=== PATIENT | female | born 1980 | race Caucasian/White ===

== ENCOUNTER 2023-02-19 09:52 | Outpatient (OUT) | payer BC, SELFPAY ==
--- NOTE | 2023-02-19 10:32 | ECG_ITS ---
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
--- NOTE | 2023-02-19 10:49 | P.GSHP_ITS ---
History of Present Illness History of Present Illness Chief complaint: REQUEST FOR STERILIZATION Narrative: Patient presents for preadmission testing. The patient states she generally has regular periods, however she has had irregular menstrual bleeding over the past few months, and has had painful heavy periods and pelvic pain. She also states she does not want to get and would like sterilization. She denies fever, nausea, vomiting, or any other complaints. Review of Systems ROS Narrative REVIEW OF SYSTEMS: Negative except as stated in HPI, ten or more systems reviewed. Constitutional: No fever , chills, weakness ENT: No sore throat or epistaxis Cardiovascular: No edema, chest pain, palpitations, or activity intolerance Respiratory: No shortness of breath, cough, or wheezing Musculoskeletal: No joint pain or swelling Gastrointestinal: No abdominal pain, constipation, diarrhea, or vomiting Genitourinary: No dysuria or hematuria Neurological: No numbness, tingling, weakness, or headache Psychiatric: No mood changes PFSH PFSH Medical History (Updated 02/19/23 @ 10:32 by Niyah Camacho NP) Surgical History (Updated 02/19/23 @ 10:32 by Niyah Camacho NP) Family History (Updated 02/19/23 @ 10:32 by Niyah Camacho NP) Other Delayed recovery from anesthesia Family history of breast cancer Family history of diabetes mellitus Family history of heart disease Family history of hypertension Social History (Updated 02/19/23 @ 10:22 by Niyah Camacho NP) Within the past year, how often did you have a drink containing alcohol: 2-3 times a week Smoking status: Current every day smoker What tobacco products do you use: cigarettes Pack-years instructions: Please document either packs per day or cigarettes per day in order for pack years to calculate correctly. If using both packs per day and cigarettes per day, please make sure that they denote the same thing. If they differ, pack- years will calculate based on packs per day. 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 Highest level of school completed/degree received: some college, no degree Meds Home Medications and Allergies Home Medications Medication Instructions Recorded Confirmed Type escitalopram oxalate 5 mg tablet 5 mg PO QDAY 02/19/23 02/19/23 History lamotrigine 150 mg tablet 150 mg PO QDAY 02/19/23 02/19/23 History metoprolol tartrate 25 mg tablet 12.5 mg PO QDAY 02/19/23 02/19/23 History multivitamin (Multiple Vitamins 1 tab PO DAILY 02/19/23 02/19/23 History tablet) omeprazole 20 mg capsule,delayed 20 mg PO DAILY 02/19/23 02/19/23 History release quetiapine 25 mg tablet 6.25 mg PO QDAY 02/19/23 02/19/23 History Allergies Allergy/AdvReac Type Severity Reaction Status Date / Time Penicillins Allergy Unknown Verified 02/19/23 10:16 Exam Narrative Exam Narrative: Constitutional: Awake, alert, comfortable, well-appearing, nontoxic, interactive, vital signs as charted Head: Normocephalic, atraumatic Neck: Supple, normal appearance, normal range of motion, no meningeal signs, no lymphadenopathy Respiratory: No respiratory distress, breath sounds clear Cardiovascular: Regular rate and rhythm, strong and regular heart tones Abdomen: Nontender, normal bowel sounds, soft, no CVA tenderness Musculoskeletal: Normal gait, no swelling or edema Skin: No rashes or induration, no lesions, only visible skin inspected Neuro: No neurological deficits, normal sensation Psychiatric: Oriented ?3, normal affect Assessment and Plan Assessment and Plan (1) Abnormal uterine bleeding: (2) Menorrhagia: (3) Pelvic pain: (4) Request for sterilization: Plan Bilateral laparoscopic salpingectomy, endometrial ablation/Jonelle assisted by da Arielle robot scheduled with Dr. Pollard 03/01/2023.
== END 2023-02-19 09:53 ==
PROVIDERS: PCP Family Medicine
DX: Z01.810 Encounter for preprocedural cardiovascular examination (principal); Z30.2 Encounter for sterilization; N92.0 Excessive and frequent menstruation with regular cycle; N93.9 Abnormal uterine and vaginal bleeding, unspecified; R10.2 Pelvic and perineal pain
CPT/HCPCS: 93005; G0463

== ENCOUNTER 2023-03-01 07:34 | Day surgery (SDC) | payer BC, SELFPAY ==
[2023-02-19 10:23] VITALS: BP 125/71; PULSE 69; RESP 18; TEMP 36.5; O2SAT 99; BMI 22.0
[2023-03-01] VITALS (9 sets, daily range): BP systolic 120–144; BP diastolic 67–81; PULSE 61–94; RESP 12–20; TEMP 36.1–36.3; O2SAT 93–98; BMI 21.7
[2023-03-01 07:55] LABS: Hematocrit 41.7 % (36.0-48.0); Hemoglobin 14.1 g/dL (12.0-16.0); Mean Corpuscular HGB Conc 33.8 g/dL (29.9-35.2); Mean Corpuscular Hemoglobin 32.4 pg (26.7-34.0); Mean Corpuscular Volume 95.9 fL (81.0-99.0); Mean Platelet Volume 9.1 fL (9.5-13.5); Platelet Count 218 10^3/uL (150-450); Red Blood Count 4.35 10^6/uL (4.20-5.40); White Blood Count 5.5 10^3/uL (4.0-11.0)
[2023-03-01] MEDS: LACTATED RINGER'S SOLUTION 1,000 ML 50 ML IV (08:20)
[2023-03-01 08:57] LABS: HCG Quantitative <1 mIU/mL
--- NOTE | 2023-03-01 10:01 | OP_ITS ---
OPERATION DATE: ??03/01/2023 PROCEDURE:? Jonelle endometrial ablation with robotic assisted bilateral laparoscopic salpingectomy. PREOPERATIVE DIAGNOSIS:? Menorrhagia, desires permanent sterilization. POSTOPERATIVE DIAGNOSIS:? Menorrhagia, desires permanent sterilization. ANESTHESIA:? General. SURGEON:? Osiel Pollard D.O. MARKETING AND DEVELOPMENT COORDINATOR:? ETHEL Pereyra URINE OUTPUT:? Yellow and clear. BLOOD LOSS:? 5 mL. SPECIMEN:? Bilateral tubes. FINDINGS:? Normal appearing ovaries, uterus and tubes.? Both ostia seen.? No gross evidence of polyps, fibroids or malignancy. PROCEDURE:? The patient was taken back to the OR where she was prepped and draped in the normal sterile fashion after being placed in the dorsal lithotomy position, after being placed under general anesthesia without difficulty. a weighted speculum was then placed into the vagina. The anterior lip was grasped with a single tooth tenaculum. The patient was then sounded to approximately 9 cm. The patient was gently sounded using Hegar dilators and the hysteroscope was passed through the cervix into the uterus where both ostia were seen. No gross evidence of polyps, fibroids or malignancy. The cervical length was noted to be 5 cm. The Jonelle ablation apparatus was set to approximately 4 cm in length. This was placed in through the cervix and into the uterus. After the seal was tested, at that time the total ablation of 120 seconds was performed with the Jonelle without difficulty. All instruments were removed from the vagina. A wet sponge stick was placed into the patient's vagina. Attention was then turned tothe patient's abdomen, where a scalpel was used to make a small infraumbilical incision. The S retractors were then used to dissect the underlying layersuntil the fascia could be seen. The fascia was then grasped with Kassidy clamps and tented up. A knife was then used to make a small incision to the fascia. The muscle was identified, at that time two sutures of #0 Vicryl on a GI needle was then used and placed through the fascia. The peritoneum was then identified and entered bluntly. The 10-4 Kayla was then placed into the patient's abdomen. This was confirmed with direct visualization of the bowel, using the laparoscope. The patient's abdomen was then insufflated using approximately 4 liters of CO2 gas. Survey of the patient's abdomen demonstrated normal appearing ovaries, uterus and tubes. A second and third lateral robotic ports, which was 5 mm in size, was then placed laterally after incision was made in the skin under direct visualization. The robotic arms were engaged. The patient's tube on the patient's right side was identified. The tube was then tented up using a grasper. The LigaSure wasused to transect and coagulate the mesosalpinx from the fimbriated end to the insertion at the uterus.? The tube was amputated and removed in its entirety.? Excellent hemostasis was noted.? This was performed on the contralateral side as well. The lateral ports were then moved under direct visualization with excellent hemostasis. The abdomen was desufflated. All instruments were removed from the patient's abdomen. The fascia was closed using the #0 Vicryl on GI needle. The skin was closed using 4-0 Vicryl subcuticularly. All instruments were removed from the patient's vagina as well. The patient was taken out of the dorsal lithotomy position and placed in the supine position and taken to recovery in stable condition. Sponge, lap and needle counts were correct x2. Omental adhesions were removed from the anterior abdominal wall using theLigaSure. ??? ABDID
--- NOTE | 2023-03-01 10:43 | PC.NURSE ---
x3 dressings; dry x3
--- NOTE | 2023-03-01 10:45 | PC.NURSE ---
16 estonian patel inserted by Rachel Hernandez at beginning of case. Removed at end with 700ml of clear yellow urine
--- NOTE | 2023-03-01 10:48 | PC.NURSE ---
peripad dry and abdominal dressings x3 dry
--- NOTE | 2023-03-01 10:52 | PC.NURSE ---
peripad dry and abdominal dressings x3 dry and intact
--- NOTE | 2023-03-01 10:57 | PC.NURSE ---
peripad dry and dressings x3 to abdomen dry
--- NOTE | 2023-03-01 11:38 | PC.NURSE ---
peripad dry; abdominal dressings dry and intact x3 denies urge to void
--- NOTE | 2023-03-01 11:58 | PC.NURSE ---
PERIPAD DRY; ABDOMINAL DRESSINGS X3 DRY AND INTACT
--- NOTE | 2023-03-01 12:02 | PC.NURSE ---
VOIDED CLEAR YELLOW WITHOUT DIFFICULTY; SCANT AMOUNT OF BLOOD NOTED IN TOLIET
--- NOTE | 2023-03-01 13:52 | PC.NURSE ---
48 Jonelle done. 950 Tubal began.
[2023-08-09 14:16] LABS: General Pathology SENT
== END 2023-03-01 12:10 | disposition home or self-care (01) ==
PROVIDERS: PCP Family Medicine; Visit Provider Obstetrics & Gynecology
PROC: (CPT 58563; principal; 2023-03-01 08:50)
DX: Z30.2 Encounter for sterilization (principal); N92.0 Excessive and frequent menstruation with regular cycle; N93.9 Abnormal uterine and vaginal bleeding, unspecified; N80.203 Endometriosis of bilateral fallopian tubes, unspecified depth; R10.2 Pelvic and perineal pain; F17.210 Nicotine dependence, cigarettes, uncomplicated; Z79.899 Other long term (current) drug therapy
CPT/HCPCS: 58563; 58661; 36415; 84702; 85027; 88302; 88342; J2704

== ENCOUNTER 2024-07-22 16:55 | Emergency (ER) | payer BC, SELFPAY ==
[2024-07-22 16:57] VITALS: BP 165/84; PULSE 88; TEMP 36.8; O2SAT 99
--- NOTE | 2024-07-22 17:29 | US_ITS ---
[address] [address] Patient Name: DENISE WITT MRN: [id number] date: 1980 Sex: F Assigned Patient Location: ER Current Patient Location: .MAIN Accession/Order Number: [id number] Exam Date: 07/22/2024 17:50 Report Date: 07/22/2024 19:49 At the request of: JENNIFER PARSON Procedure: US pelvis transvaginal EXAM: Pelvic ultrasound ultrasound CLINICAL INDICATION: pelvic pain, vaginal bleeding. COMPARISON: Ultrasound dated 01/29/2023 TECHNIQUE: Transvaginal pelvic ultrasound was performed with grayscale and color Doppler images were obtained. FINDINGS: Uterus: Uterus measures 8.5 x 4.0 x 4.8 cm. No abnormal uterine masses. Endometrium measures 3 mm thickness. Hypoechoic lesion with low level internal echoes in the cervix measuring 2.0 x 1.3 x 2.1 cm, this was not present on 01/29/2023. Nabothian cysts. Right ovary: Measures 1.8 x 1.5 x 1.6 cm. Normal color flow and Doppler arterial and venous waveforms. No ovarian masses. Left ovary: Measures 2.7 x 2.5 x 2.9 cm. Normal color flow and Doppler arterial and venous waveforms. No ovarian masses. No free fluid in the pelvis. US/US pelvis transvaginal IMPRESSION: 1. Hypoechoic lesion the cervix is indeterminate. Large nabothian cysts or prior postoperative change are considerations. This was not present on 01/29/2023. Correlate with hCG levels to exclude ectopic . 2. Otherwise, no acute sonographic abnormalities in the pelvis. Electronically authenticated by: EDEN GUPTA Date: 07/22/2024 19:49
--- NOTE | 2024-07-22 17:31 | ED_ITS ---
HPI HPI - General Adult General Chief complaint: Abdominal Pain Stated complaint: ABDOMINAL PAIN Time Seen by Provider: 07/22/24 16:58 Source: patient Mode of arrival: walk-in Limitations: no limitations History of Present Illness HPI narrative: Patient presented to the emergency department for evaluation of 3 weeks of pelvic pain. Patient states that for the last 3 weeks she has been having pain. Suprapubic, right over the uterus. Patient states that it the last 3 weeks, nothing brings it on, not makes it go away. Patient states that since Saturday it has been consistent as well at work today. She was not sure what it was so she came in here. Patient states that while department she felt a gush, noted she was starting her period. States that she has been bleeding for 3 she had an ablation of her tubes, Has not had a period since that time. Is not sexually active. No complaints at this time Related Data Home Medications ?Medication ?Instructions ?Recorded ?Confirmed lamotrigine 150 mg tablet 150 mg PO QDAY 02/19/23 07/22/24 metoprolol tartrate 25 mg tablet 12.5 mg PO QDAY 02/19/23 07/22/24 multivitamin (Multiple Vitamins 1 tab PO DAILY 02/19/23 07/22/24 tablet) omeprazole 20 mg capsule,delayed 20 mg PO DAILY 02/19/23 07/22/24 release duloxetine 60 mg capsule,delayed mg PO 07/22/24 release Previous Rx's ?Medication ?Instructions ?Recorded ibuprofen 800 mg tablet 800 mg PO Q8H PRN pain #40 tabs 03/01/23 Allergies Allergy/AdvReac Type Severity Reaction Status Date / Time Penicillins Allergy Unknown Verified 02/19/23 10:16 Opioid HPI Opioid Management Most Recent Opioid Data: Last Pain Scale 3 03/01/23 11:24 03/01/23 Review of Systems ROS Narrative Negative unless otherwise stated in the HPI [facility] Medical History (Updated 07/22/24 @ 18:51 by Temo Almonte MD) Thrombocytopenia ?D69.6 - Thrombocytopenia, unspecified (ICD-10) Anemia ?D64.9 - Anemia, unspecified (ICD-10) Anxiety ?F41.9 - Anxiety disorder, unspecified (ICD-10) COVID-19 ?U07.1 - COVID-19 (ICD-10) Vertigo ?R42 - Dizziness and giddiness (ICD-10) Chiari malformation Migraine ?G43.909 - Migraine, unspecified, not intractable, without status migrainosus (ICD-10) Abnormal uterine bleeding ?N93.9 - Abnormal uterine and vaginal bleeding, unspecified (ICD-10) Menorrhagia ?N92.0 - Excessive and frequent menstruation with regular cycle (ICD-10) Pelvic pain ?R10.2 - Pelvic and perineal pain (ICD-10) Tachycardia ?R00.0 - Tachycardia, unspecified (ICD-10) Palpitations ?R00.2 - Palpitations (ICD-10) Request for sterilization ?Z30.2 - Encounter for sterilization (ICD-10) Surgical History (Updated 02/19/23 @ 10:32 by Niyah Camacho NP) History of bone marrow biopsy ?Z98.890 - Other specified postprocedural states (ICD-10) History of colonoscopy ?Z98.890 - Other specified postprocedural states (ICD-10) History of wisdom tooth extraction ?K08.409 - Partial loss of teeth, unspecified cause, unspecified class (ICD- 10) History of tonsillectomy ?Z90.89 - Acquired absence of other organs (ICD-10) Family History (Updated 02/19/23 @ 10:55 by Niyah Camacho NP) Other Angina pectoris Delayed recovery from anesthesia Family history of breast cancer Family history of diabetes mellitus Family history of heart disease Family history of hypertension Social History (Updated 02/19/23 @ 10:22 by Niyah Camacho NP) Within the past year, how often did you have a drink containing alcohol: 2-3 times a week Smoking status: Current every day smoker What tobacco products do you use: cigarettes Cigarettes per day: 15 Years smoked: 25 Smoking pack-years: 18.75 Non-prescribed substance use: denies use Previous occupational history: [employer] Services Highest level of school completed/degree received: some college, no degree Little interest or pleasure in doing things: not at all Feeling down, depressed, or hopeless: not at all Exam Narrative Exam Narrative: General: NAD, AAOx3, no distress Eyes: No pallor Abdomen: Soft, ND/tenderness to the uterus, suprapubic low pelvis. No evidence of fluid wave. No pulsatile masses on exam, rebound tenderness, Wolf sign or pain over Mcburney's point. Constitutional Vital Signs, click to edit/add: Last Vital Signs Temp 98.3 F 07/22/24 16:57 Pulse 88 07/22/24 16:57 Resp 16 07/22/24 16:57 BP 165/84 H 07/22/24 16:57 Pulse Ox 99 07/22/24 16:57 O2 Del Method Room Air 07/22/24 16:57 Course Vital Signs Vital signs: Vital Signs Temperature 98.3 F 07/22/24 16:57 Pulse Rate 88 07/22/24 16:57 Respiratory Rate 16 07/22/24 16:57 Blood Pressure 165/84 H 07/22/24 16:57 Pulse Oximetry 99 07/22/24 16:57 Oxygen Delivery Method Room Air 07/22/24 16:57 Temperature 98.3 F 07/22/24 16:57 Pulse Rate 88 07/22/24 16:57 Respiratory Rate 16 07/22/24 16:57 Blood Pressure 165/84 H 07/22/24 16:57 Pulse Oximetry 99 07/22/24 16:57 Oxygen Delivery Method Room Air 07/22/24 16:57 Medical Decision Making MDM Narrative Medical decision making narrative: [facility] Patient with history as above presented with pelvic pain. History obtained from patient. Patient was nontoxic, stable. Ambulatory. Exam as above. Independently reviewed imaging. Reviewed external records. Differential diagnosis considered. Overall presentation is consistent with DUB 1900 patient was signed out at normal change of shift pending ultrasound and urine Prag Discharge Plan Discharge Chief Complaint: Abdominal Pain Clinical Impression: Pelvic pain, Vaginal bleeding Patient Disposition: Still a Patient Prescriptions / Home Meds: No Action lamotrigine 150 mg tablet 150 mg PO QDAY metoprolol tartrate 25 mg tablet 12.5 mg PO QDAY multivitamin [Multiple Vitamins] Tablet 1 tab PO DAILY omeprazole 20 mg capsule,delayed release(DR/EC) 20 mg PO DAILY ibuprofen 800 mg tablet 800 mg PO Q8H PRN (Reason: pain) Qty: 40 0RF duloxetine 60 mg capsule,delayed release(DR/EC) PO Print Language: Trinidadian Referrals: SHAGGY ROLLE [Primary Care Provider] - 1 week
[2024-07-22 19:33] LABS: HCG Qualitative Urine* NEGATIVE (NEGATIVE); Internal Control Within Normal Limits
--- NOTE | 2024-07-22 19:57 | ED.ABDPAIN1 ---
HPI - Abdominal Pain General Chief Complaint: Abdominal Pain Stated Complaint: ABDOMINAL PAIN Time Seen by Provider: 07/22/24 16:58 Source: patient Mode of arrival: walk-in Limitations: no limitations History of Present Illness HPI narrative: 44-year-old female presented to the emergency department and was initially seen by Dr. Almonte and signed out to me after discussing the case with him thoroughly. Please see his full history and physical exam. Related Data Home Medications ?Medication ?Instructions ?Recorded ?Confirmed lamotrigine 150 mg tablet 150 mg PO QDAY 02/19/23 07/22/24 metoprolol tartrate 25 mg tablet 12.5 mg PO QDAY 02/19/23 07/22/24 multivitamin (Multiple Vitamins 1 tab PO DAILY 02/19/23 07/22/24 tablet) omeprazole 20 mg capsule,delayed 20 mg PO DAILY 02/19/23 07/22/24 release duloxetine 60 mg capsule,delayed mg PO 07/22/24 release Previous Rx's ?Medication ?Instructions ?Recorded ibuprofen 800 mg tablet 800 mg PO Q8H PRN pain #40 tabs 03/01/23 Allergies Allergy/AdvReac Type Severity Reaction Status Date / Time Penicillins Allergy Unknown Verified 02/19/23 10:16 [facility] Medical History (Updated 07/22/24 @ 18:51 by Temo Almonte MD) Thrombocytopenia ?D69.6 - Thrombocytopenia, unspecified (ICD-10) Anemia ?D64.9 - Anemia, unspecified (ICD-10) Anxiety ?F41.9 - Anxiety disorder, unspecified (ICD-10) COVID-19 ?U07.1 - COVID-19 (ICD-10) Vertigo ?R42 - Dizziness and giddiness (ICD-10) Chiari malformation Migraine ?G43.909 - Migraine, unspecified, not intractable, without status migrainosus (ICD-10) Abnormal uterine bleeding ?N93.9 - Abnormal uterine and vaginal bleeding, unspecified (ICD-10) Menorrhagia ?N92.0 - Excessive and frequent menstruation with regular cycle (ICD-10) Pelvic pain ?R10.2 - Pelvic and perineal pain (ICD-10) Tachycardia ?R00.0 - Tachycardia, unspecified (ICD-10) Palpitations ?R00.2 - Palpitations (ICD-10) Request for sterilization ?Z30.2 - Encounter for sterilization (ICD-10) Surgical History (Updated 02/19/23 @ 10:32 by Niyah Camacho NP) History of bone marrow biopsy ?Z98.890 - Other specified postprocedural states (ICD-10) History of colonoscopy ?Z98.890 - Other specified postprocedural states (ICD-10) History of wisdom tooth extraction ?K08.409 - Partial loss of teeth, unspecified cause, unspecified class (ICD-10) History of tonsillectomy ?Z90.89 - Acquired absence of other organs (ICD-10) Family History (Updated 02/19/23 @ 10:55 by Niyah Camacho NP) Other Angina pectoris Delayed recovery from anesthesia Family history of breast cancer Family history of diabetes mellitus Family history of heart disease Family history of hypertension Social History (Updated 02/19/23 @ 10:22 by Niyah Camacho NP) Within the past year, how often did you have a drink containing alcohol: 2-3 times a week Smoking status: Current every day smoker What tobacco products do you use: cigarettes Cigarettes per day: 15 Years smoked: 25 Smoking pack-years: 18.75 Non-prescribed substance use: denies use Previous occupational history: [employer] Highest level of school completed/degree received: some college, no degree Little interest or pleasure in doing things: not at all Feeling down, depressed, or hopeless: not at all Exam Constitutional Vital Signs, click to edit/add: Last Vital Signs Temp 98.3 F 07/22/24 16:57 Pulse 88 07/22/24 16:57 Resp 16 07/22/24 16:57 BP 165/84 H 07/22/24 16:57 Pulse Ox 99 07/22/24 16:57 O2 Del Method Room Air 07/22/24 16:57 Course Vital Signs Vital signs: Vital Signs Temperature 98.3 F 07/22/24 16:57 Pulse Rate 88 07/22/24 16:57 Respiratory Rate 16 07/22/24 16:57 Blood Pressure 165/84 H 07/22/24 16:57 Pulse Oximetry 99 07/22/24 16:57 Oxygen Delivery Method Room Air 07/22/24 16:57 Temperature 98.3 F 07/22/24 16:57 Pulse Rate 88 07/22/24 16:57 Respiratory Rate 16 07/22/24 16:57 Blood Pressure 165/84 H 07/22/24 16:57 Pulse Oximetry 99 07/22/24 16:57 Oxygen Delivery Method Room Air 07/22/24 16:57 MDM - Abdominal Pain MDM Narrative Medical decision making narrative: test is negative and ultrasound shows possible cervical cyst. Otherwise no other abnormalities noted on the ultrasound per radiologist. The patient will follow-up with her established gynecology provider. Treatment diagnosis and follow-up were discussed thoroughly. Differential Diagnosis Differential diagnosis: Likely abdominal pain and other (Leiomyoma, ectopic , miscarriage) Lab Data Attestation: I reviewed the patient's lab results. Labs: Lab Results 07/22/24 Range/Units 19:25 Urine HCG, Qual Negative (NEGATIVE) Imaging Data Pelvic ultrasound: Radiologist's impression: ITS Impressions Transvaginal US 07/22/24 17:29 IMPRESSION: 1. Hypoechoic lesion the cervix is indeterminate. Large nabothian cysts or prior postoperative change are considerations. This was not present on 01/29/2023. Correlate with hCG levels to exclude ectopic . 2. Otherwise, no acute sonographic abnormalities in the pelvis. Electronically authenticated by: EDEN GUPTA Date: 07/22/2024 19:49 Discharge Plan Discharge Chief Complaint: Abdominal Pain Clinical Impression: Pelvic pain, Vaginal bleeding Patient Disposition: Home, Self-Care Time of Disposition Decision: 19:57 Condition: Good Mode of Transportation: Private Vehicle Prescriptions / Home Meds: No Action lamotrigine 150 mg tablet 150 mg PO QDAY metoprolol tartrate 25 mg tablet 12.5 mg PO QDAY multivitamin [Multiple Vitamins] Tablet 1 tab PO DAILY omeprazole 20 mg capsule,delayed release(DR/EC) 20 mg PO DAILY ibuprofen 800 mg tablet 800 mg PO Q8H PRN (Reason: pain) Qty: 40 0RF duloxetine 60 mg capsule,delayed release(DR/EC) PO Print Language: Citizen Of [place] Instructions: Abnormal (Dysfunctional) Uterine Bleeding (ED) Referrals: SHAGGY ROLLE [Primary Care Provider] - 1 week
== END 2024-07-22 20:07 | disposition home or self-care (01) ==
PROVIDERS: Emergency Medicine; Emergency Provider Emergency Medicine; PCP Family Medicine
DX: R10.2 Pelvic and perineal pain (principal); N93.9 Abnormal uterine and vaginal bleeding, unspecified; F17.210 Nicotine dependence, cigarettes, uncomplicated
CPT/HCPCS: 76830; 84703; 99284

== ENCOUNTER 2024-12-10 14:12 | Outpatient (OUT) | payer BC, SELFPAY ==
--- NOTE | 2024-12-10 14:34 | ECG_ITS ---
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 Measurements Intervals [place] Rate: 69 P: 57 MD: 139 QRS: 80 QRSD: 78 T: 72 QT: 385 QTc: 415 Interpretive Statements SINUS RHYTHM Otherwise normal ECG Compared to ECG 02/19/2023 10:47:26 No significant change Electronically Signed On 12-11-2024 15:12:58 EDT by STEVE COHN M.D.
[2024-12-10 15:16] LABS: Basophils Percent Auto 0.4 % (0.2-2.0); Eosinophils Absolute Auto 0.1 10^3/uL (0.0-0.7); Hematocrit 40.7 % (36.0-48.0); Hemoglobin 14.1 g/dL (12.0-16.0); Immature Granulocytes Abs Auto 0.01 10^3/uL (0.00-0.03); Immature Granulocytes Pct Auto 0.2 % (0.0-0.5); Lymphocytes Absolute Auto 1.9 10^3/uL (1.2-3.8); Lymphocytes Percent Auto 36.6 % (20.5-60.0); Mean Corpuscular HGB Conc 34.6 g/dL (29.9-35.2); Mean Corpuscular Hemoglobin 33.5 pg (26.7-34.0); Mean Corpuscular Volume 96.7 fL (81.0-99.0); Mean Platelet Volume 9.1 fL (9.5-13.5); Monocytes Absolute Auto 0.4 10^3/uL (0.3-0.8); Monocytes Percent Auto 7.1 % (1.7-12.0); Neutrophils Absolute Auto 2.7 10^3/uL (1.4-6.5); Neutrophils Percent Auto 53.7 % (43.0-75.0); Platelet Count 229 10^3/uL (150-450); Red Blood Count 4.21 10^6/uL (4.20-5.40); Red Cell Distribution Width 12.7 % (11.0-15.0); White Blood Count 5.1 10^3/uL (4.0-11.0)
[2024-12-10 15:36] LABS: Alanine Aminotransferase 34 U/L (14-59); Albumin Globulin Ratio 1.3; Albumin Level 3.8 g/dL (3.4-5.0); Alkaline Phosphatase 74 U/L (46-116); Anion Gap 12.7; Aspartate Amino Transferase 19 U/L (15-37); Bilirubin Direct 0.1 mg/dL (0.0-0.2); Bilirubin Total 0.3 mg/dL (0.2-1.0); Calcium 9.1 mg/dL (8.5-10.1); Chloride 106 mmol/L (98-107); Estimated GFR (African America >60 (>=60 mL/min/1.73m^2); Estimated GFR (Non-African Ame >60 (>=60 mL/min/1.73m^2); Globulin 2.9 g/dL; Glucose 106 mg/dL (74-106); Potassium 3.7 mmol/L (3.5-5.1); Sodium 144 mmol/L (136-145); Total Protein 6.7 g/dL (6.4-8.2)
[2024-12-10 15:40] LABS: INR 0.96; Partial Thromboplastin Time 26.1 sec (22.3-36.2); Prothrombin Time 10.2 sec (9.0-11.6)
== END 2024-12-10 14:13 | disposition home or self-care (01) ==
LOC: PST 14:12
PROVIDERS: PCP Family Medicine; Visit Provider Obstetrics & Gynecology
DX: Z01.810 Encounter for preprocedural cardiovascular examination (principal); Z01.812 Encounter for preprocedural laboratory examination; N92.0 Excessive and frequent menstruation with regular cycle; R10.2 Pelvic and perineal pain; N94.6 Dysmenorrhea, unspecified; N94.10 Unspecified dyspareunia
CPT/HCPCS: 80048; 80076; 85025; 85610; 85730; 86850; 86900; 86901; 93005

== ENCOUNTER 2024-12-18 06:50 | Outpatient (OUT) | payer BC, SELFPAY ==
--- OUTSIDE RECORDS SUMMARY | 2024-12-18 06:53 | XMS_ITS | CCD ---
Author Organization [facility] Care Team Providers Care Professor Of 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 Name Role Phone LATRICE ., DR WALKER Attending Unavailable LATRICE ., DR WALKER Admitting Unavailable LATRICE ., DR WALKER Attending Unavailable LATRICE ., DR WALKER Admitting Unavailable House , Pato Wayne Primary Care Provider HONG, TRAMAINE Redd Attending Unavailable LATRICE, AARON Attending Unavailable FLORO, TRAMAINE Redd Referring Unavailable FLORO, TRAMAINE Redd Attending Unavailable FLORO, TRAMAINE Redd Attending Unavailable FLORO, TRAMAINE Redd Attending Unavailable LATRICE, AARON Attending Unavailable Jaron Linares DO Primary Care Provider Megvalucie lable HOUSE, DO PATO Wayne Attending Unavailable HOUSE, PATO Wayne Primary Care Unavailable HOUSE, PATO Wayne Primary Care Unavailable HOUSE, DO COON P Attending Unavailable HOUSE, PATO P Primary Care Unavailable HOUSE, DO COON P Attending Unavailable HOUSE, PATO P Primary Care Unavailable HOUSE, DO PATO Wayne Admitting Unavailable HOUSE, DO PATO Wayne Attending Unavailable Allergies Allergy Classification Reported Allergen(s) Allergy Type Date of Onset Reaction(s) Facility (2 sources) Penicillins Drug allergy (disorder) 7 [facility] Repository (14 sources) Penicillins Drug Intolerance 4 Unknown [facility] Work Phone: (1 source) Penicillin; Translations: [penicillin] Drug Allergy [facility] Repository Medications Current Medications Medication Drug Class(es) Dates Sig (Normalized) Sig (Original) DULoxetine 60 mg delayed release oral capsule (4 sources) Serotonin and Norepinephrine Reuptake Inhibitor Start: 09-29-2024 take 1 capsule by mouth once daily DULoxetine (Cymbalta) [address] capsule Take 60 mg by mouth Daily 09/29/2024 Active lamoTRIgine 150 mg oral tablet (14 sources) Mood Stabilizer, Anti-epileptic Agent lamoTRIgine (LaMICtal) 150 MG tablet 1 (one) time each day at the same time. Active meclofenamate 100 mg oral capsule (2 sources) Start: 08-24-2024 End: 08-31-2024 take 1 capsule by mouth every eight hours meclofenamate (Meclomen) 100 MG capsule Indications: DUB (dysfunctional uterine bleeding) Take 1 capsule (100 mg) by mouth every 8 (eight) hours for 7 days 20 capsule 1 08/24/2024 08/31/2024 Active metoprolol tartrate 25 mg oral tablet (14 sources) beta-Adrenergic Alexander metoprolol tartrate (Lopressor) 25 MG tablet every 12 (twelve) hours. Active Multiple Vitamin (Multi Vitamin) tablet (14 sources) Multiple Vitamin (Multi Vitamin) tablet 1 (one) time each day at the same time. Active omeprazole 20 mg delayed release oral capsule (14 sources) Proton Pump Inhibitor omeprazole (PriLOSEC) [address] capsule 1 (one) time each day at the same time. Active Completed/Discontinued Medications Medication Drug Class(es) Dates Sig (Normalized) Sig (Original) escitalopram 5 mg oral tablet (4 sources) Serotonin Reuptake Inhibitor End: 08-03-2024 escitalopram (Lexapro) 5 MG tablet 1 (one) time each day at the same time. 08/03/2024 Discontinued (Therapy completed) Problems Problem Classification Problem Date Documented Date Episodic/Chronic Abdominal pain (1 source) Pain in female pelvis; Translations: [Pelvic and perineal pain] 11-25-2024 Episodic Menstrual disorders (2 sources) Menorrhagia; Translations: [Excessive and frequent menstruation with regular cycle] 11-25-2024 Chronic Other female genital disorders (5 sources) Abnormal uterine bleeding; Translations: [Other specified abnormal uterine and vaginal bleeding] 08-24-2024 Chronic Other female genital disorders (1 source) Pain in female genitalia on intercourse; Translations: [Unspecified dyspareunia] 11-25-2024 Chronic Other infections; including parasitic (2 sources) History of human papilloma virus infection; Translations: [Personal history of other infectious and parasitic diseases] 10-06-2024 Episodic Other screening for suspected conditions (not mental disorders or infectious disease) (4 sources) Cancer cervix screening status; Translations: [Encounter for screening for malignant neoplasm of cervix] 08-03-2024 Episodic Viral infection (1 source) Herpesviral gingivostomatitis and pharyngotonsillitis; Translations: [Herpesviral gingivostomatitis and pharyngotonsillitis] Onset: 11-17-2024 Episodic Results Test Name Value Interpretation Reference Range Facility ECG 12-LEADon 12-11-2024 [place] [address] Electrocardiograph Report Signed Patient: ROSALIND JACKSON MR#: [id number] : 1980 Acct:[id number] Age/Sex: 44 / F ADM Date: 12/10/24 Loc: PST Attending Dr: Aaron Pollard D.O. Ordering Physician: Aaron Pollard D.O. 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 Measurements Intervals [place] Rate: 69 P: 57 [place]: 139 QRS: 80 QRSD: 78 T: 72 QT: 385 QTc: 415 Interpretive Statements SINUS RHYTHM Otherwise normal ECG Compared to ECG 02/19/2023 10:47:26 No significant change Electronically Signed On 12-11-2024 15:12:58 EDT by STEVE COHN M.D. Dictated By: STEVE COHN Signed By: 12/11/24 1513 DD/ 1505 TD/TT: Marine Equipment Design Engineer: [facility] Radiology, Radiologist, MD - 12/11/2024 [place] [address] Electrocardiograph Report Signed Patient: ROSALIND JACKSON MR#: [id number] : 1980 Acct:[id number] Age/Sex: 44 / F ADM Date: 12/10/24 Loc: PST Attending Dr: Aaron Pollard D.O. Ordering Physician: Aaron Pollard D.O. 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 Measurements Intervals [place] Rate: 69 P: 57 [place]: 139 QRS: 80 QRSD: 78 T: 72 QT: 385 QTc: 415 Interpretive Statements SINUS RHYTHM Otherwise normal ECG Compared to ECG 02/19/2023 10:47:26 No significant change Electronically Signed On 12-11-2024 15:12:58 EDT by STEVE COHN M.D. Dictated By: STEVE COHN Signed By: 12/11/24 1513 DD/ 1505 TD/TT: Marine Equipment Design Engineer: [facility] ECG 12-LEADOrdered By: Radio logist Radiology on 12-11-2024 [facility] [employer] [employer] Work Phone: ALL CBC WITH AUTO DIFFon BASOPHILS ABSOLUTE AUTO 0 [facility] Basophils/100 WBC (Bld) 0.4 % 0.2 - 2.0 % [facility] Eosinophils/100 WBC (Bld) 2 % 0.9 - 7.0 % [facility] Erythrocyte distribution width (RBC) [Ratio] 12.7 % 11.0 - 15.0 % [facility] Hematocrit (Bld) [Volume fraction] 40.7 % 36.0 - 48.0 % [facility] Hemoglobin (Bld) [Mass/Vol] 14.1 g/dL 12.0 - 16.0 g/dL [facility] IMMATURE GRANULOCYTES ABS AUTO 0.01 [facility] Immature granulocytes/100 WBC (Bld) 0.2 % 0.0 - 0.5 % [facility] Interpretation and review of laboratory results Abnormal [facility] LYMPHOCYTES ABSOLUTE AUTO 1.9 [facility] Lymphocytes/100 WBC (Bld) 36.6 % 20.5 - 60.0 % [facility] MCH (RBC) [Entitic mass] 33.5 pg 26.7 - 34.0 pg [facility] MCHC (RBC) [Mass/Vol] 34.6 g/dL 29.9 - 35.2 g/dL [facility] MCV (RBC) [Entitic vol] 96.7 fL 81.0 - 99.0 fL [facility] MONOCYTES ABSOLUTE AUTO 0.4 [facility] Monocytes/100 WBC (Bld) 7.1 % 1.7 - 12.0 % [facility] NEUTROPHILS ABSOLUTE AUTO 2.7 [facility] Neutrophils/100 WBC (Bld) 53.7 % 43.0 - 75.0 % [facility] Platelet mean volume (Bld) [Entitic vol] 9.1 fL Low 9.5 - 13.5 [facility]L [facility] PLT 229 [facility] RBC 4.21 [facility] WBC 5.1 [facility] ECG 12-LEADon 12-10-2024 Radiology Study observation (narrative) [facility] Laboratory - Specimen inform ationon 09-21-2024 Specimen source Nom (Unsp spec) [facility] Comment on above: Endocervix, curettag e: Cervix, 3, 6, 12 o'c lock, biopsy: No Panel Informationon 09-21 Pathology report final diagnosis Narrative [facility] Comment on above: Fragments of unremar kable endocervical epithelium. Limited sample of ex tremely scant fragments of unremarkable endocervical epithelium, see comment. Pathology report gross observation Narrative [facility] Comment on above: Received in 10% neut ral buffered formalin is a specimen labeled endocervix that consists of pale lafleur mucoid material measuring in aggregate 2.0 x 1.0 x 0.1 cm. Submitted entirely in one cassette(s). Received in 10% Neut ral Buffered Formalin is a specimen labeled 3:00, 6:00, 12:00 that consists of multiple minute fragments of soft, lafleur tissue measuring 0.1 x 0.1 x 0.1 cm in aggregate. Submitted entirely in one cassette. Due to size the specimen may not survive processing. MARYLOU Tissue examon 09-21-2024 Clinical information [facility] Comment on above: [id number], [id number] Pathologist Cyto stain Nom (Cvx/Vag) [ID] [facility] Comment on above: Janette Cerrato M.D. Board certified in Anatomic Pathology and Clinical Pathology (electronic signature) [phone] Pathology report comments [Interpretation] Narrative [facility] Comment on above: Intact squamous muco sa is not present for evaluation. SMALL FORMALIN X2 CERVIX 3,6,12 O'CLOCK; ENDOCERVIX [employer] Organization Information Site ID: [id number] Name: [facility] Address: [address] [place] [address], [place] [address] Director: Janette Cerrato MD [facility] e HCG ( test) Ql (U)o n 09-18-2024 Interpretation and review of laboratory results Normal [facility] Preg Test, Ur Negative Negative [facility] Laboratory - Cytologyon Chief Accounting Officer Cyto stain Nom (Cvx/Vag) [ID] [facility] re Comment on above: PATRICIA, CT(ASCP) CT scr [place]ening location: [place] [address]. Cytology study comment Cyto stain Bennett (Cvx/Vag) [Interp] [facility] Comment on above: This Pap test has be en evaluated with computer assisted technology. General categories Cyto stain (Cvx/Vag) [Interp] Abnormal [facility] Comment on above: Cytology Results: Ep ithelial Cell Abnormality Microscopic observation Cyto stain Nom (Cvx) Abnormal [facility] Comment on above: Low Grade Squamous I ntraepithelial Lesion (LSIL) Pathologist Cyto stain Nom (Cvx/Vag) [ID] [facility] Comment on above: Vaibhav Chowdhury MD, PhD, M.B.A. Board Certified in Anatomic and Clinical Pathology Board Certified in Cytopathology (electronic signature) For questions regarding this report call Anatomic Pathology at [phone] Specimen source Cyto stain Nom (Cvx/Vag) [facility] are Comment on above: None given Statement of adequacy Cyto stain (Cvx/Vag) [Interp] [facility] Comment on above: Satisfactory for paulette luation. Endocervical/transformation zone component present. Laboratory - Microbiology an d Antimicrobial susceptibilityon 08-12-2024 HPV 16+18+31+33+35+39+45+ 51+52+56+58+59+66+68 DNA ABHIJIT+probe Ql (Cvx) Detected Abnormal NOT DETECTED [facility] Comment on above: Detected One or more High Risk HPV types (16,18,31,33, 35,39,45,51,52,56,58,59,66,68) was detected. Methodology: Real Time PCR No Panel Informationon 08-12 (ALWAYS MESSAGE) [facility] Comment on above: EXPLANATORY NOTE: The Pap is a screening test for cervical cancer. It is not a diagnostic test and is subject to false negative and false positive results. It is most reliable when a satisfactory sample, regularly obtained, is submitted with relevant clinical findings and history, and when the Pap result is evaluated along with historic and current clinical information. Clinical information [facility] Comment on above: None given Date of previous biopsy [facility] Comment on above: NONE GIVEN Date of previous PAP smear [facility] Comment on above: NONE GIVEN Interpretation and review of laboratory results Abnormal [facility] Last menstrual period start date [facility] Comment on above: NONE GIVEN Performing Organization Information Site ID: [id number] Name: its learning/[facility] Address: [address] [place] [address] Director: Michelet Heard M.D.,PhD Site ID: [id number] [facility] Address: [address] [place] [id number] Director: Vaibhav Chowdhury [facility] Outside Recordson 07-23-2024 Outside Records [id number]#1 .00[facility] Rad - Ultrasound Reporton Rad - Ultrasound Report [id number]#1 .00[facility] Patient Handouton 03-04-2024 Patient Handout [id number] #1.00[facility] Patient Provided Health Data on 02-28-2024 Patient Provided Health Data [id number]# 1.00[facility] SCREENING MAMMOGRAM W/LUIS, BILATERAL*on 02-26-2022 SCREENING MAMMOGRAM W/LUIS, BILATERAL* COMPARISON: Dating back to July 18, 2017 TECHNIQUE: 2D and 3D Tomosynthesis of the right and left breasts was performed. FINDINGS: Breast composition demonstrates heterogeneously dense parenchyma. No suspicious microcalcifications, asymmetry, architectural distortion or associated features are present. IMPRESSION: BI RADS 1 : NEGATIVE MAMMOGRAM Board Certified Radiologist. Accredited by the ACR and FDA. MAMMOGRAPHY IS VERY IMPORTANT TO YOUR HEALTH. THE CURRENT [employer] GUIDELINES RECOMMENDS ANNUAL MAMMOGRAPHY BEGINNING AT AGE 40. THIS FACILITY USES A REMINDER SYSTEM TO ENSURE ALL PATIENTS RECEIVE REMINDER NOTIFICATIONS AT THE APPROPRIATE TIME BASED ON THE RECOMMENDATIONS OF THIS EXAM. Report reported and signed by Dennis Smith on 03/05/2022 1613 Normal [facility] Automotive Quality Engineer Vital Signs Date Time Vital Sign Value Performing Clinician Faci matt 11-25-2024 16:07-0400 Body height 171.5 cm Aaron Latrice DO Work Phone: [facility] 11-25-2024 16:07-0400 Body mass index (BMI) [Ratio] 24.54 kg/m2 Aaron Latrice DO Work Phone: [facility] 11-25-2024 16:07-0400 Body weight 72.12 kg Aaron Latrice DO Work Phone: [facility] 11-25-2024 16:07-0400 Diastolic blood pressure 82 mm[Hg] Aaron Latrice DO Work Phone: [facility] 11-25-2024 16:07-0400 Systolic blood pressure 136 mm[Hg] Aaron Latrice DO Work Phone: [facility] 10-14-2024 14:52-0500 Body mass index (BMI) [Ratio] 24.35 kg/m2 Aaron Latrice DO Work Phone: [facility] 10-14-2024 14:52-0500 Body weight 72.63 kg Aaron Latrice DO Work Phone: [facility] 10-14-2024 14:52-0500 Diastolic blood pressure 72 mm[Hg] Aaron Latrice DO Work Phone: [facility] 10-14-2024 14:52-0500 Systolic blood pressure 114 mm[Hg] Aaron Latrice DO Work Phone: [facility] 08-24-2024 15:42-0500 Body mass index (BMI) [Ratio] 23.57 kg/m2 Tramaine Noreeno CNM Work Phone: [facility] 08-24-2024 15:42-0500 Body weight 70.31 kg Tramaine Floro CNM Work Phone: [facility] 08-24-2024 15:42-0500 Diastolic blood pressure 70 mm[Hg] Tramaine Noreeno CNM Work Phone: [facility] 08-24-2024 15:42-0500 Systolic blood pressure 110 mm[Hg] Tramaine Noreeno CNM Work Phone: [facility] 08-03-2024 17:48-0500 Body mass index (BMI) [Ratio] 23.57 kg/m2 Tramaine Noreeno CNM Work Phone: [facility] 08-03-2024 17:48-0500 Body weight 70.31 kg Tramaine Noreeno CNM Work Phone: [facility] Healthcare Encounters Encounter Date Encounter Type Care Provider Facility Start: 12-16-2024 ambulatory DO PATO Royal lity:[facility] Start: 12-15-2024 End: 12-15-2024 Telephone encounter Lisa Garner [facility] Comment on above: STAT referral Start: 12-10-2024 End: 12-11-2024 Clinisync Result Encounter Aaron Latrice DO Work Phone: [facility] External Department Unsolicited Start: 12-10-2024 End: 12-11-2024 Clinisync Result Encounter Aaron Latrice DO Work Phone: [facility] External Department Unsolicited Start: 11-25-2024 End: 11-25-2024 Office outpatient visit 15 minutes Aaron Latrice DO Work Phone: [facility] Comment on above: Pre-op examination; Menorrhagia with regular cycle; Pelvic pain in female; Dyspareunia, female; Dysmenorrhea Start: 11-25-2024 End: 11-25-2024 Preprocedural examination done Aaron Latrice DO Work Phone: [facility] Start: 11-25-2024 End: 11-25-2024 ambulatory AARON LATRICE Not Available Start: 11-17-2024 End: 11-17-2024 ambulatory [facility] Facility:[facility] Start: 10-14-2024 End: 10-14-2024 Office outpatient visit 15 minutes Aaron Latrice DO Work Phone: [facility] Comment on above: DUB (dysfunctional u terine bleeding) Start: 10-14-2024 End: 10-14-2024 ambulatory AARON LATRICE Not Available Start: 10-14-2024 End: 10-14-2024 Bamboo flowsheet Aaron Latrice DO Work Phone: [facility] Start: 10-14-2024 End: 10-14-2024 Bamboo flowsheet Aaron Latrice DO Work Phone: [facility] Start: 10-06-2024 End: 10-06-2024 Patient encounter procedure Tramaine Tramaine Sortoo CN Work Phone: [facility] Comment on above: Abnormal cervical Pa panicolaou smear, unspecified abnormal pap finding; History of HPV infection Start: 10-06-2024 End: 10-06-2024 ambulatory TRAMAINE L FLORO Not Available Start: 09-17-2024 End: 09-17-2024 Patient encounter procedure Tramaine L Floro CN Work Phone: [facility] Comment on above: DUB (dysfunctional u terine bleeding) (Primary Dx); Abnormal cervical Papanicolaou smear, unspecified abnormal pap finding; History of HPV infection Start: 09-17-2024 End: 09-17-2024 ambulatory TRAMAINE L FLORO Not Available Start: 08-24-2024 End: 08-24-2024 Office outpatient visit 10 minutes Tramaine L Floro CNM Work Phone: [facility] Comment on above: DUB (dysfunctional u terine bleeding) (Primary Dx) Start: 08-24-2024 End: 08-24-2024 ambulatory TRAMAINE L FLORO Not Available Start: 08-24-2024 End: 08-24-2024 Bamboo flowsheet Tramaine L Floro CNM Work Phone: [facility] Start: 08-24-2024 End: 08-24-2024 Bamboo flowsheet Tramaine L Floro CNM Work Phone: [facility] Start: 08-03-2024 End: 08-03-2024 Office outpatient visit 15 minutes Tramaine L Floro CNM Work Phone: [facility] Comment on above: Screening for cervic al cancer Start: 08-03-2024 End: 08-03-2024 ambulatory TRAMAINE L FLORO Not Available Start: 08-03-2024 End: 08-03-2024 Bamboo flowsheet Tramaine L Floro CNM Work Phone: [facility] Start: 08-03-2024 End: 08-03-2024 Bamboo flowsheet Tramaine L Floro CNM Work Phone: [facility] Start: 07-17-2024 End: 07-17-2024 Telephone encounter Pato Rolle MD Work Phone: [facility] Start: 03-02-2024 End: 03-02-2024 ambulatory PATO ROLLE Facility:[facility] Start: 02-27-2024 End: 02-27-2024 ambulatory PATO ROLLE Facility:[facility] Start: 01-29-[address] AARON POLLARD . Facili ty:[facility]1 Start: 12-31-[address] AARON POLLARD . Facili ty:[facility] Procedures Date Procedure Procedure Detail Performing Clinician Start: 12-10-2024 ALL CBC WITH AUTO DIFF Aaron Latrice DO Work Phone: Start: 12-10-2024 ECG 12-LEAD Aaron Fazi o DO Work Phone: Start: 09-18-2024 Urine test visual color cmprsn meths Tramaine Laureano CNM Work Phone: Start: 09-18-2024 Level i surg patholo gy gross examination only Tramaine Sortojosé luis CNM Work Phone: Start: 08-04-2024 THINPREP IMAGING PAP AND HPV DNA REFLEX HPV 16,18 Tramaine Sortojosé luis CNM Work Phone: Start: 02-27-2022 Microscopic observat ion [Identifier] in Cervix by Cyto stain Pato Rolle MD Work Phone: Start: 02-26-2022 Mammography Pato yee MD Work Phone: Plan of Treatment Date Care Activity Detail Author Start: 02-26-2027 Screening for malign ant neoplasm of cervix [facility] Start: 05-10-2025 Influenza vaccination [facility] Start: 01-19-2025 End: 01-19-2025 Patient encounter procedure 01/19/2025 9:00 AM EDT Procedure Visit [facility] [address] [place] [address] Tramaine Laureano CN [address] [place], [place] [id number] [facility] Start: 12-22-2024 End: 12-22-2024 Patient encounter procedure 12/22/2024 11:00 AM EDT Office Visit [facility] [place] [address] Toni Muñiz MD [address] [place] [address] [address] [place] [phone] [facility] Start: 10-14-2024 End: 10-14-2024 Patient encounter procedure [facility] Comment on above: DUB (dysfunctional u terine bleeding) Start: 10-06-2024 End: 10-06-2025 Tissue exam Tissue exam Pathology and Cytology Routine Abnormal cervical Papanicolaou smear, unspecified abnormal pap finding History of HPV infection Expected: 10/06/2024 (Approximate), Expires: 10/06/2025 [facility] Healthcare Work Phone: Comment on above: Expected: 10/06/2024 (Approximate), Expires: 10/06/2025 Start: 08-24-2024 End: 08-24-2024 Patient encounter procedure 08/24/2024 3:30 PM EST Office Visit [facility] [address] [place] [phone] Tramaine Laureano, CN [address] [place] [address] Arrived [facility] Comment on above: Arrived Start: 08-03-2024 End: 08-03-2024 Patient encounter procedure 08/03/2024 5:45 PM EST Office Visit [facility] [address] [place] [phone] [facility]amaine Laureano[facility] [address] [place] [address] Arrived [facility] Comment on above: Arrived Start: 05-10-2024 Influenza vaccination Influenza Vacc ine (#1) [facility] Start: 02-26-2023 Screening for malign ant neoplasm of breast Mammogram [facility] Start: 2001 Screening for malign ant neoplasm of cervix Pap Smear [facility] Start: 1999 DTaP,Tdap and Td Vaccines (1 - Tdap) DTaP,Tdap and Td Vaccines (1 - Tdap) [facility] Start: 1998 Adult BMI Screening Adult BMI Screen ing [facility] Start: 1992 Depression Screening Depression Scre ening [facility] Start: 1992 Tobacco Screening Tobacco Screening [facility] Payers Date Payer Category Payer [facility] [id number] 2021 Unknown [id number] 1980 Unknown [id number] [id number] .593 1980 Unknown [id number] 2.16.840.1.065203.3.579.2 .593 1980 Unknown [id number] 2.16.840.1.967547.3.579.2 .1259 1980 Unknown [id number] 2.16.840.1.436404.3.579.2 .9 1980 Unknown [id number] 2.16.840.1.293309.3.579.2 .1259 1980 Unknown [id number] 2.16.840.1.559061.3.579.2 .1259 1980 Unknown [id number] 2.16.840.1.795033.3.579.2 .1259 1980 Unknown [id number] 2.16.840.1.894564.3.579.2 .9 1980 Unknown [id number] 2.16.840.1.276196.3.579.2 .718 1980 Unknown [id number] 2.16.840.1.074642.3.579.2 .718 1980 Unknown [id number] 2.16.840.1.204828.3.579.2 .718 1980 Unknown [id number] 2.16.840.1.708013.3.579.2 .718 1959 Self-pay [id number] Social History Date Type Detail Facility Start: 09-09-2004 End: 08-03-2024 Tobacco smoking status NHIS Smokes tobacco daily [facility] Start: 09-09-2004 History of tobacco use Cigarette Smo ker [facility] Start: 04-03-2023 End: 10-14-2024 Alcoholic beverage intake Current drinker of alcohol (finding) [facility] Start: 02-18-2019 End: 04-03-2023 Alcoholic beverage intake [facility] Start: 02-18-2019 End: 04-03-2023 Tobacco use panel [facility] Start: 02-04-2023 Tobacco Comment 6-10 cigs per day. [facility] Start: 02-04-2023 Alcohol Comment Caffeine intak e: 1-2 cups per day [facility] Healthcare Start: 1980 Sex assigned at Not on file N [facility] Start: 08-03-2024 Tobacco use and exposure Smokeless tobacco non-user [facility] Tobacco smoking stat [facility] Tobacco smoking consumption unknown [facility] Childcare Unknown [facility] Start: 04-14-2015 Sex Female (finding) [facility] Clinical Notes 03-23-2024 to 12-15-2024 Telephone Encounter - Lisa Derrick Pascual - 12/15/2024 11:07 AM EDTTelephone Encounter - Lisa Meza Pascual - 12/15/2024 11:07 AM EDTMkerri Jones - 11/25/2024 3:50 PM EDT Note Date & Type Note Facility 12-15-2024 Miscellaneous Notes Formattin g of this note might be different from the original. Please ask the following questions to the new patient that you are schedulin. IS THIS DUE TO AN ACCIDENT? - NO 2. IS THIS WORKER'S COMP? PLEASE VERIFY IF THIS IS WORKERS COMP AND DOCUMENT (We do not accept any new workers comp cases) - NO 3. WHAT INSURANCE? - Shaina BCBS 4. HAVE YOU EVER BEEN SEEN BY A NEUROLOGIST BEFORE? IF YES, WHO AND WHEN? IS THIS A SECOND OPINION? - YES NOT A SECOND OPINION 5. ANY CHANCE OF NOW OR BEFORE YOUR APPOINTMENT? - NO 6. OFFERED HARSH FOR SOONER APPOINTMENT? - 7. PATIENT IS SCHEDULED ON/WITH: - Dr. Muñiz on 12.23.23 at 11:00a 8. WHO CALLED TO SCHEDULE APPOINTMENT? - Electric Meter Reader called patient [facility] 12-15-2024 Telephone encount er Note Please ask the following questions to the new patient that you are schedulin. IS THIS DUE TO AN ACCIDENT? - NO 2. IS THIS WORKER'S COMP? PLEASE VERIFY IF THIS IS WORKERS COMP AND DOCUMENT (We do not accept any new workers comp cases) - NO 3. WHAT INSURANCE? - Shaina [employer] 4. HAVE YOU EVER BEEN SEEN BY A NEUROLOGIST BEFORE? IF YES, WHO AND WHEN? IS THIS A SECOND OPINION? - YES NOT A SECOND OPINION 5. ANY CHANCE OF NOW OR BEFORE YOUR APPOINTMENT? - NO 6. OFFERED HARSH FOR SOONER APPOINTMENT? - 7. PATIENT IS SCHEDULED ON/WITH: - Dr. Muñiz on 12.23.23 at 11:00a 8. WHO CALLED TO SCHEDULE APPOINTMENT? - Electric Meter Reader called patient [facility] 12-09-2024 Note Entered by JERAD ROLLE DO on December 09, 2024 14:05:59 EDT From: PATO ROLLE DO To: [facility]/pharmacy #[id number] Sent: 12/09/2024 14:05:59 EDT Subject: Medication Management Approved Order:lansoprazole (lansoprazole 30 mg oral delayed release capsule) TAKE 1 CAPSULE BY MOUTH EVERY DAY Qty: 90 cap(s) Days Supply: 90 Refills: 1 Substitutions Allowed Route To Pharmacy - [facility] STORE [id number] Note from Pharmacy: REQUEST FOR 90 DAYS PRESCRIPTION. Signed by PATO ROLLE DO Cancelled: Discontinue:lansoprazole (lansoprazole 30 mg oral delayed release capsule) Signed by PATO ROLLE DO From: [facility] STORE [id number] To: PATO ROLLE DO Sent: December 09, 2024 11:30:40 AM CDT Subject: Medication Management Due: December 10, 2024 11:30:40 AM CDT Originally Prescribed Drug: Drug: lansoprazole (lansoprazole 30 mg oral delayed release capsule), TAKE 1 CAPSULE BY MOUTH EVERY DAY Quantity: 30 cap(s) Days Supply: 30 Refills: 2 Substitutions Allowed Notes from Pharmacy: REQUEST FOR 90 DAYS PRESCRIPTION. On Hold Pending Signature Preferred Alternative Drug: lansoprazole (lansoprazole 30 mg oral delayed release capsule), TAKE 1 CAPSULE BY MOUTH EVERY DAY Quantity: 90 cap(s) Days Supply: 90 Refills: 1 Substitutions Allowed Notes from Pharmacy: REQUEST FOR 90 DAYS PRESCRIPTION. [facility] 11-25-2024 History of Presen t illness Narrative Reason for Appointment: Patient ID: Rosalind Jackson is a 44 y.o. female who presents for Pre-op Visit Patient presents today for Pre Op appointment. Patient is scheduled to undergo Da Arielle assisted Laparoscopic Hysterectomy, possible exploratory laparotomy, possible BSO, possible cystoscopy on 12/24/[address] Pollard at [facility]. MEDICATIONS Current Outpatient Medications Medication Instructions DULoxetine (CYMBALTA) 60 mg, Daily lamoTRIgine (LaMICtal) 150 MG tablet Every 24 hours metoprolol tartrate (Lopressor) 25 MG tablet Every 12 hours Multiple Vitamin (Multi Vitamin) tablet Every 24 hours omeprazole (PriLOSEC) [address] capsule Every 24 hours ALLERGIES Allergies Allergen Reactions Penicillins Unknown PROBLEMS Active Ambulatory Problems Diagnosis Date Noted No Active Ambulatory Problems Resolved Ambulatory Problems Diagnosis Date Noted No Resolved Ambulatory Problems Past Medical History: Diagnosis Date Chiari syndrome (CMS/HCC) Menorrhagia with irregular cycle HISTORY PAST MEDICAL HISTORY SOCIAL HISTORY Past Medical History: Diagnosis Date Chiari syndrome (CMS/HCC) Menorrhagia with irregular cycle Social History Tobacco Use Smoking status: Every Day Types: Cigarettes Start date: 09/09/2004 Smokeless tobacco: Never Tobacco comments: 6-10 cigs per day. Substance Use Topics Alcohol use: Yes Alcohol/week: 2.0 standard drinks of alcohol Types: 2 Standard drinks or equivalent per week Comment: Caffeine intake: 1-2 cups per day Drug use: Not on file FAMILY HISTORY Family History Problem Relation Name Age of Onset Cancer Paternal Grandmother SURGICAL HISTORY Past Surgical History: Procedure Laterality Date ENDOMETRIAL ABLATION 03/01/2023 Jonelle SALPINGECTOMY Bilateral 03/01/2023 laproscopic TONSILLECTOMY 1985 REVIEW OF SYSTEMS Review of Systems: Review of Systems Constitutional: Negative. HENT: Negative. Eyes: Negative. Respiratory: Negative. Cardiovascular: Negative. Gastrointestinal: Negative. Genitourinary: Positive for dyspareunia, menstrual problem and pelvic pain. Musculoskeletal: Negative. Skin: Negative. Neurological: Negative. All other systems reviewed and are negative. Hematological: Negative. Endocrine: Negative. Allergic/Immunologic: Negative. OBJECTIVE Objective: Physical Exam Constitutional: Appearance: Normal appearance. She is well-developed. Cardiovascular: Rate and Rhythm: Normal rate and regular rhythm. Pulmonary: Effort: Pulmonary effort is normal. Breath sounds: Normal breath sounds. Abdominal: General: Bowel sounds are normal. There is no distension. Palpations: Abdomen is soft. Tenderness: There is no abdominal tenderness. There is no guarding or rebound. Musculoskeletal: General: No swelling. Normal range of motion. Right lower leg: No edema. Left lower leg: No edema. Neurological: Mental Status: She is alert and oriented to person, place, and time. Skin: General: Skin is warm and dry. Psychiatric: Mood and Affect: Mood normal. Behavior: Behavior normal. Vitals and nursing note reviewed. Exam conducted with a coin machine supervisor present. Vitals: Estimated body mass index is 24.35 kg/m as calculated from the following: Height as of 04/03/23: 5' 8 . Weight as of 10/14/24: 160 lb 1.9 oz. BP: No LMP recorded. Patient has had an ablation. ASSESSMENT & PLAN ICD-10-CM 1. Pre-op examination Z01.818 2. Menorrhagia with regular cycle N92.0 3. Pelvic pain in female R10.2 4. Dyspareunia, female N94.10 5. Dysmenorrhea N94.6 Pre Op: Patient is doing well but has complaints of pelvic pain, menorrhagia, dyspareunia, dysmenorrhea. I have discussed conservative management vs. surgical management with the patient in detail and patient desires surgical management at this time. Patient will undergo Da Arielle assisted Laparoscopic Hysterectomy, possible exploratory laparotomy, possible BSO, possible cystoscopy on 12/24/2024. Surgical consents were signed, mmc was reviewed, and patient is to proceed to [facility] OR. Follow Up: Patient is to follow up at 1 & 6 weeks post operative to assess proper healing and recovery from procedure. Documented by Tiarra Tellez LPN on behalf of: Aaron Pollard DO documented in this encounter [facility] 10-14-2024 History of Presen t illness Narrative Reason for Appointment: Patient ID: Rosalind Jackson is a 44 y.o. female who presents for Vaginal Bleeding Patient presents today for Acute Visit. MEDICATIONS Current Outpatient Medications Medication Instructions DULoxetine (CYMBALTA) 60 mg, Daily lamoTRIgine (LaMICtal) 150 MG tablet Every 24 hours metoprolol tartrate (Lopressor) 25 MG tablet Every 12 hours Multiple Vitamin (Multi Vitamin) tablet Every 24 hours omeprazole (PriLOSEC) [address] capsule Every 24 hours ALLERGIES Allergies Allergen Reactions Penicillins Unknown PROBLEMS Active Ambulatory Problems Diagnosis Date Noted No Active Ambulatory Problems Resolved Ambulatory Problems Diagnosis Date Noted No Resolved Ambulatory Problems Past Medical History: Diagnosis Date Chiari syndrome (CMS/HCC) Menorrhagia with irregular cycle HISTORY PAST MEDICAL HISTORY SOCIAL HISTORY Past Medical History: Diagnosis Date Chiari syndrome (CMS/HCC) Menorrhagia with irregular cycle Social History Tobacco Use Smoking status: Every Day Types: Cigarettes Start date: 09/09/2004 Smokeless tobacco: Never Tobacco comments: 6-10 cigs per day. Substance Use Topics Alcohol use: Yes Alcohol/week: 2.0 standard drinks of alcohol Types: 2 Standard drinks or equivalent per week Comment: Caffeine intake: 1-2 cups per day Drug use: Not on file FAMILY HISTORY Family History Problem Relation Name Age of Onset Cancer Paternal Grandmother SURGICAL HISTORY Past Surgical History: Procedure Laterality Date ENDOMETRIAL ABLATION 03/01/2023 Jonelle SALPINGECTOMY Bilateral 03/01/2023 laproscopic TONSILLECTOMY 1985 REVIEW OF SYSTEMS Review of Systems: Review of Systems Constitutional: Negative. HENT: Negative. Eyes: Negative. Respiratory: Negative. Cardiovascular: Negative. Gastrointestinal: Negative. Genitourinary: Negative. Musculoskeletal: Negative. Skin: Negative. Neurological: Negative. All other systems reviewed and are negative. Hematological: Negative. Endocrine: Negative. Allergic/Immunologic: Negative. OBJECTIVE Objective: Physical Exam Constitutional: Appearance: Normal appearance. She is well-developed. Cardiovascular: Rate and Rhythm: Normal rate and regular rhythm. Pulmonary: Effort: Pulmonary effort is normal. Breath sounds: Normal breath sounds. Abdominal: General: Bowel sounds are normal. There is no distension. Palpations: Abdomen is soft. Tenderness: There is no abdominal tenderness. There is no guarding or rebound. Musculoskeletal: General: No swelling. Normal range of motion. Right lower leg: No edema. Left lower leg: No edema. Neurological: Mental Status: She is alert and oriented to person, place, and time. Skin: General: Skin is warm and dry. Psychiatric: Mood and Affect: Mood normal. Behavior: Behavior normal. Vitals and nursing note reviewed. Exam conducted with a coin machine supervisor present. Vitals: Estimated body mass index is 24.35 kg/m as calculated from the following: Height as of 04/03/23: 5' 8 . Weight as of this encounter: 160 lb 1.9 oz. BP: 114/72 No LMP recorded. Patient has had an ablation. ASSESSMENT & PLAN ICD-10-CM 1. DUB (dysfunctional uterine bleeding) N93.8 Ambulatory referral to Obstetrics / Gynecology Pt to be scheduled for hysterectomy Documented by Tiarra Tellez LPN on behalf of: Aaron Pollard DO documented in this encounter [facility] 10-06-2024 History of Presen t illness Narrative Colposcopy: Patient is doing well and has no complaints. Pap results have been reviewed with the patient in great detail and patient voiced understanding. Patient presents today for a Colposcopy with ECC. Patient was placed in dorsal lithotomy position with feet in stirrups, a sterile speculum was placed into the vagina and the cervix was visualized. Cervix was cleansed with betadine swab. Sterile ECC instrument was introduced into cervical os and ECC biopsy obtained without difficulty. 5% acetric acid was then placed onto the cervix for 2-3 mins. Sterile mini tischler was used to obtain biopsies from 7, 3, 12'oclock without difficulty. Hemostasis noted at the end of procedure. Patient tolerated procedure well. Postprocedural instructions given and patient is to avoid intercourse for seven days, and if bleeding is enough to change a pad every hour patient should go to the nearest ED. All if patients questions answered and she expressed understanding. Advised to call in interim with questions or concerns. Follow Up: Patient is to return for repeat annual Pap or sooner depending on colposcopyresults. documented in this encounter [facility] 09-29-2024 Note Entered by JERAD ROLLE DO on September 29, 2024 10:11:46 EST From: PATO ROLLE DO To: [facility]/pharmacy #[id number] Sent: 09/29/2024 10:11:46 EST Subject: Medication Management Submitted: Complete:DULoxetine (DULoxetine 60 mg oral delayed release capsule) Signed by PATO ROLLE DO 09/29/2024 10:11:00 EST Approved DULoxetine (DULOXETINE HCL DR 60 MG CAP) TAKE 1 CAPSULE BY MOUTH EVERY DAY Qty: 90 cap(s) Days Supply: 90 Refills: 1 Substitutions Allowed Route To Pharmacy - [facility]/pharmacy #[id number] From: [facility] STORE [id number] To: PATO ROLLE DO Sent: September 28, 2024 6:27:08 PM WASHER ENGINEER HELPER Subject: Medication Management Due: September 29, 2024 12:06:01 AM WASHER ENGINEER HELPER On Hold Pending Signature Dispensed Drug: DULoxetine (DULoxetine 60 mg oral delayed release capsule), TAKE 1 CAPSULE BY MOUTH EVERY DAY Quantity: 90 cap(s) Days Supply: 90 Refills: 1 Substitutions Allowed Notes from Pharmacy: [facility] 09-17-2024 History of Presen t illness Narrative PROBLEM VISIT Rosalind Jackson is 44 y.o. a patient of [facility] [employer] Here for colposcopy Last pap: 08/04/24 Last mammogram: 02/26/22 will get current mammogram No LMP recorded. Patient has had an ablation. History: Past Medical History: Diagnosis Date Chiari syndrome (CMS/HCC) Menorrhagia with irregular cycle Past Surgical History: Procedure Laterality Date ENDOMETRIAL ABLATION 03/01/2023 Jonelle SALPINGECTOMY Bilateral 03/01/2023 laproscopic TONSILLECTOMY 1985 Family History Problem Relation Name Age of Onset Cancer Paternal Grandmother @SOCX@ Allergies: Allergies Allergen Reactions Penicillins Unknown Medications: Current Outpatient Medications on File Prior to Visit Medication Sig Dispense Refill lamoTRIgine (LaMICtal) 150 MG tablet 1 (one) time each day at the same time. metoprolol tartrate (Lopressor) 25 MG tablet every 12 (twelve) hours. Multiple Vitamin (Multi Vitamin) tablet 1 (one) time each day at the same time. omeprazole (PriLOSEC) [address] capsule 1 (one) time each day at the same time. No current facility-administered medications on file prior to visit. There were no vitals filed for this visit. HPI: abnormal Pap with HPV and irregular bleeding. Patient going to see Dr Pollard for abnormal bleeding. ROS: Review of Systems Physical exam: Physical Exam Colposcopy: Patient is doing well and has no complaints. Pap results have been reviewed with the patient in great detail and patient voiced understanding. Patient presents today for a Colposcopy with ECC. Patient was placed in dorsal lithotomy position with feet in stirrups, a sterile speculum was placed into the vagina and the cervix was visualized. Cervix was cleansed with betadine swab. Sterile ECC instrument was introduced into cervical os and ECC biopsy obtained without difficulty. 5% acetric acid was then placed onto the cervix for 2-3 mins. Sterile mini tischler was used to obtain biopsies from 6-12-3 o'clock without difficulty. Hemostasis noted at the end of procedure. Patient tolerated procedure well. Postprocedural instructions given and patient is to avoid intercourse for seven days, and if bleeding is enough to change a pad every hour patient should go to the nearest ED. All if patients questions answered and she expressed understanding. Advised to call in interim with questions or concerns. Follow Up: Patient is to return for repeat annual Pap or sooner depending on colposcopyresults. Assessment and Plan: There are no diagnoses linked to this encounter. No follow-ups on file. There are no Patient Instructions on file for this visit. Bria Bourgeois MA,09/17/2024 2:33 PM documented in this encounter [facility] 08-31-2024 Note Entered by JERAD ROLLE DO on August 31, 2024 07:37:49 EST From: PATO ROLLE DO To: [facility]/pharmacy #[id number] Sent: 08/31/2024 07:37:49 EST Subject: Medication Management Submitted: Complete:lamoTRIgine (lamoTRIgine 150 mg oral tablet) Signed by PATO ROLLE DO 08/31/2024 07:37:00 EST Approved with modifications: lamoTRIgine (LAMOTRIGINE 150 MG TABLET) TAKE 1 TABLET BY MOUTH DAILY Qty: 30 tab(s) Days Supply: 30 Refills: 5 Substitutions Allowed Route To Pharmacy - [facility]/pharmacy #[id number] From: [facility] STORE [id number] To: PATO ROLLE DO Sent: August 30, 2024 11:06:20 AM WASHER ENGINEER HELPER Subject: Medication Management Due: August 31, 2024 12:36:00 AM WASHER ENGINEER HELPER On Hold Pending Signature Dispensed Drug: lamoTRIgine (lamoTRIgine 150 mg oral tablet), TAKE 1 TABLET BY MOUTH DAILY Quantity: 30 tab(s) Days Supply: 30 Refills: 2 Substitutions Allowed Notes from Pharmacy: [facility] 08-24-2024 History of Presen t illness Narrative PROBLEM VISIT Rosalind Jackson is 44 y.o. a patient of [facility] [employer] Here for to discuss control to help with bleeding Last pap: 08/04/24 Last mammogram: No LMP recorded. Patient has had an ablation. History: Past Medical History: Diagnosis Date Chiari syndrome (CMS/HCC) Menorrhagia with irregular cycle Past Surgical History: Procedure Laterality Date ENDOMETRIAL ABLATION 03/01/2023 Jonelle SALPINGECTOMY Bilateral 03/01/2023 laproscopic TONSILLECTOMY 1985 Family History Problem Relation Name Age of Onset Cancer Paternal Grandmother @SOCX@ Allergies: Allergies Allergen Reactions Penicillins Unknown Medications: Current Outpatient Medications on File Prior to Visit Medication Sig Dispense Refill lamoTRIgine (LaMICtal) 150 MG tablet 1 (one) time each day at the same time. metoprolol tartrate (Lopressor) 25 MG tablet every 12 (twelve) hours. Multiple Vitamin (Multi Vitamin) tablet 1 (one) time each day at the same time. omeprazole (PriLOSEC) [address] capsule 1 (one) time each day at the same time. No current facility-administered medications on file prior to visit. Vitals: 08/24/24 1542 BP: 110/70 HPI: patient bleeding off and on even s/p endometrial ablation. She is bleeding off and on and sometimes its heavy. She is tired of bleeding and wants it taken care of. She has h/o of abnormal Pap last visit. ROS: Review of Systems Physical exam: Physical Exam Assessment and Plan: There are no diagnoses linked to this encounter. DUB Schedule for colposcopy and pelvic US Will refer to Dr Pollard for evaluation of DUB post endometrial ablation No follow-ups on file. There are no Patient Instructions on file for this visit. Bria Bourgeois MA,08/24/2024 3:44 PM documented in this encounter [facility] 08-03-2024 History of Presen t illness Narrative PROBLEM VISIT Rosalind Jackson is 44 y.o. a patient of [facility] [employer] Here for hospital follow up from pelvic pain Last pap: 2021 Last mammogram: No LMP recorded. Patient has had an ablation. History: Past Medical History: Diagnosis Date Chiari syndrome (CMS/HCC) Menorrhagia with irregular cycle Past Surgical History: Procedure Laterality Date ENDOMETRIAL ABLATION 03/01/2023 Jonelle SALPINGECTOMY Bilateral 03/01/2023 laproscopic TONSILLECTOMY 1985 Family History Problem Relation Name Age of Onset Cancer Paternal Grandmother @SOCX@ Allergies: Allergies Allergen Reactions Penicillins Unknown Medications: Current Outpatient Medications on File Prior to Visit Medication Sig Dispense Refill lamoTRIgine (LaMICtal) 150 MG tablet 1 (one) time each day at the same time. metoprolol tartrate (Lopressor) 25 MG tablet every 12 (twelve) hours. Multiple Vitamin (Multi Vitamin) tablet 1 (one) time each day at the same time. omeprazole (PriLOSEC) [address] capsule 1 (one) time each day at the same time. [DISCONTINUED] escitalopram (Lexapro) 5 MG tablet 1 (one) time each day at the same time. No current facility-administered medications on file prior to visit. There were no vitals filed for this visit. HPI: ROS: Review of Systems All other systems reviewed and are negative. Physical exam: Physical Exam Vitals reviewed. Constitutional: Appearance: Normal appearance. HENT: Head: Normocephalic. Right Ear: Tympanic membrane normal. Left Ear: Tympanic membrane normal. Mouth/Throat: Mouth: Mucous membranes are moist. Eyes: Pupils: Pupils are equal, round, and reactive to light. Cardiovascular: Rate and Rhythm: Normal rate and regular rhythm. Pulses: Normal pulses. Heart sounds: Normal heart sounds. Pulmonary: Effort: Pulmonary effort is normal. Breath sounds: Normal breath sounds. Chest: Breasts: Right: Normal. Left: Normal. Abdominal: General: Abdomen is flat. Bowel sounds are normal. Palpations: Abdomen is soft. Tenderness: There is no abdominal tenderness. Genitourinary: General: Normal vulva. Exam position: Lithotomy position. Vagina: Normal. No tenderness. Cervix: Normal. No cervical motion tenderness. Uterus: Normal. Adnexa: Right adnexa normal and left adnexa normal. Musculoskeletal: General: Normal range of motion. Cervical back: Normal range of motion and neck supple. Skin: General: Skin is warm and dry. Neurological: General: No focal deficit present. Mental Status: She is alert and oriented to person, place, and time. Psychiatric: Mood and Affect: Mood normal. Assessment and Plan: There are no diagnoses linked to this encounter. No follow-ups on file. There are no Patient Instructions on file for this visit. Bria Bourgeois MA,08/03/2024 6:01 PM documented in this encounter [facility] 07-17-2024 Telephone encount er Note Patient called and wanted to schedule an appt. With Densie, she states she is having abdominal pain and thinks it might be her ovaries. I told her that Denise is not in the office next week, and she might need to go to her PCP. I told her that I would sent you a message so you can decide what you want to do. Ty [facility] 07-17-2024 Miscellaneous Notes Formattin g of this note might be different from the original. Patient called and wanted to schedule an appt. With Denise, she states she is having abdominal pain and thinks it might be her ovaries. I told her that Denise is not in the office next week, and she might need to go to her PCP. I told her that I would sent you a message so you can decide what you want to do. Ty documented in this encounter [facility] 05-27-2024 Note Entered by JERAD ROLLE DO on May 27, 2024 07:37:52 EDT From: PATO ROLLE DO To: [facility]/pharmacy #[id number] Sent: 05/27/2024 07:37:52 EDT Subject: Medication Management Submitted: Complete:lamoTRIgine (lamoTRIgine 150 mg oral tablet) Signed by PATO ROLLE DO 05/27/2024 07:37:00 EDT Approved lamoTRIgine (LAMOTRIGINE 150 MG TABLET) TAKE 1 TABLET BY MOUTH DAILY Qty: 30 tab(s) Days Supply: 30 Refills: 2 Substitutions Allowed Route To Pharmacy - [facility]/pharmacy #[id number] From: [id number] To: PATO ROLLE DO Sent: May 26, 2024 7:41:34 PM CDT Subject: Medication Management Due: May 27, 2024 11:01:35 AM CDT On Hold Pending Signature Dispensed Drug: lamoTRIgine (lamoTRIgine 150 mg oral tablet), TAKE 1 TABLET BY MOUTH DAILY Quantity: 30 tab(s) Days Supply: 30 Refills: 2 Substitutions Allowed Notes from Pharmacy: [facility] 03-23-2024 Note Entered by JERAD ROLLE DO on March 23, 2024 07:34:07 EDT From: PATO ROLLE DO To: [facility]/pharmacy #[id number] Sent: 03/23/2024 07:34:07 EDT Subject: Medication Management Approved Order:DULoxetine (DULoxetine 60 mg oral delayed release capsule) TAKE 1 CAPSULE BY MOUTH EVERY DAY Qty: 90 cap(s) Days Supply: 90 Refills: 1 Substitutions Allowed Route To Pharmacy - [facility] [id number] Note from Pharmacy: REQUEST FOR 90 DAYS PRESCRIPTION. Signed by PATO ROLLE DO Cancelled: Discontinue:DULoxetine (DULoxetine 60 mg oral delayed release capsule) Signed by PATO ROLLE DO From: [facility] [id number] To: PATO ROLLE DO Sent: March 21, 2024 8:09:09 PM CDT Subject: Medication Management Due: March 22, 2024 8:09:09 PM CDT Originally Prescribed Drug: Drug: DULoxetine (DULoxetine 60 mg oral delayed release capsule), TAKE 1 CAPSULE BY MOUTH EVERY DAY Quantity: 30 cap(s) Days Supply: 30 Refills: 2 Substitutions Allowed Notes from Pharmacy: REQUEST FOR 90 DAYS PRESCRIPTION. On Hold Pending Signature Preferred Alternative Drug: DULoxetine (DULoxetine 60 mg oral delayed release capsule), TAKE 1 CAPSULE BY MOUTH EVERY DAY Quantity: 90 cap(s) Days Supply: 90 Refills: 1 Substitutions Allowed Notes from Pharmacy: REQUEST FOR 90 DAYS PRESCRIPTION. [facility] 03-23-2024 Note Entered by JERAD ROLLE DO on March 23, 2024 07:33:37 EDT From: PATO ROLLE DO To: [facility]/pharmacy #[id number] Sent: 03/23/2024 07:33:37 EDT Subject: Medication Management Approved Order:metoprolol (Metoprolol Tartrate 25 mg oral tablet) TAKE 1/2 TABLET BY MOUTH DAILY Qty: 45 tab(s) Days Supply: 90 Refills: 2 Substitutions Allowed Route To Pharmacy - [id number] Note from Pharmacy: REQUEST FOR 90 DAYS PRESCRIPTION. Signed by PATO ROLLE DO Cancelled: Discontinue:metoprolol (Metoprolol Tartrate 25 mg oral tablet) Signed by PATO ROLLE DO From: [id number] To: PATO ROLLE DO Sent: March 21, 2024 8:10:22 PM CDT Subject: Medication Management Due: March 22, 2024 8:10:22 PM CDT Originally Prescribed Drug: Drug: metoprolol (Metoprolol Tartrate 25 mg oral tablet), TAKE 1/2 TABLET BY MOUTH DAILY Quantity: 30 tab(s) Days Supply: 30 Refills: 2 Substitutions Allowed Notes from Pharmacy: REQUEST FOR 90 DAYS PRESCRIPTION. On Hold Pending Signature Preferred Alternative Drug: metoprolol (Metoprolol Tartrate 25 mg oral tablet), TAKE 1/2 TABLET BY MOUTH DAILY Quantity: 45 tab(s) Days Supply: 90 Refills: 2 Substitutions Allowed Notes from Pharmacy: REQUEST FOR 90 DAYS PRESCRIPTION. [facility] Evaluation note Diagnosis DUB (dysfunctional uterine bleeding)- Primary Other disorder of menstruation and other abnormal bleeding from female genital tract [facility] Diagnosis Screening for cervical cancer Screening for malignant neoplasm of the cervix [facility] Diagnosis Abnormal cervical Papanicolaou smear, unspecified abnormal pap finding History of HPV infection [facility] Diagnosis DUB (dysfunctional uterine bleeding) Other disorder of menstruation and other abnormal bleeding from female genital tract [facility] Diagnosis Pre-op examination Menorrhagia with regular cycle Pelvic pain in female Unspecified symptom associated with female genital organs Dyspareunia, female Dysmenorrhea [facility]* Diagnosis DUB (dysfunctional uterine bleeding)- Primary Other disorder of menstruation and other abnormal bleeding from female genital tract Abnormal cervical Papanicolaou smear, unspecified abnormal pap finding History of HPV infection documented in this encounter [facility] HealthcareInstructionsNot on filedocumented in [facility] Purpose Family History No Family History Records FoundNo Family History Records FoundNo Family History Records FoundNo Family History Records Found Advance Directives No Advanced Directives Records FoundNo Advanced Directives Records FoundNo Advanced Directives Records FoundNo Advanced Directives Records Found Additional Source Comments INFORMATION SOURCE (unrecogn ized section and content) DATE CREATED AUTHOR 03/06/2022 [facility] dical Specialist DATE CREATED AUTHOR AUTHOR'S ORGANIZ ATION 01/23/2023 [facility] DATE CREATED AUTHOR AUTHOR'S ORGANIZ ATION 11/27/2024 [facility] dical Specialists EPIC DATE CREATED AUTHOR AUTHOR'S ORGANIZ ATION 12/16/2024 [facility] Care Teams (unrecognized sec tion and content) 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 Of 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 Relationship Specialty Start Date End Date Pato Rolle MD [address] [place] [address] PCP - General Family Medicine 02/05/23 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 Of 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 Relationship Specialty Start Date End Date Pato Rolle MD [address] [place] [address] PCP - General Family Medicine 02/05/23 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 Of 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 Relationship Specialty Start Date End Date Pato Rolle MD [address] [place] [address] PCP - General Family Medicine 02/05/23 Professor Of 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 Relationship Specialty Start Date End Date Pato Rolle MD [address] [place] [address] PCP - General Family Medicine 02/05/23 Professor Of 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 Relationship Specialty Start Date End Date Pato Rolle MD [address] [place] [address] PCP - General Family Medicine 02/05/23 Professor Of 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 Relationship Specialty Start Date End Date Pato Rolle MD [address] [place] [address] PCP - General Family Medicine 02/05/23 Professor Of 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 Relationship Specialty Start Date End Date Pato Rolle MD [address] [place] [address] PCP - General Family Medicine 02/05/23 Professor Of 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 Relationship Specialty Start Date End Date Pato Rolle MD [address] [place] [address] PCP - General Family Medicine 02/05/23 Professor Of 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 Relationship Specialty Start Date End Date Jaron Linares DO PCP - General 01/31/17 Reason for Visit (unrecogniz ed section and content) Reason Comments Pelvic Pain Reason Comments Colposcopy Reason Comments Vaginal Bleeding Specialty Diagnoses / Procedures Referred By Contac t Referred To Contact Obstetrics and Gynecology Diagnoses DUB (dysfunctional uterine bleeding) Procedures [place] OFFICE/OUTPATIENT NEW HIGH MDM 60 MINUTES Tramaine Laureano, CNM [address] [place] [address] Phone: tel: fax: Aaron Pollard DO [address] [place] [address] [place] [address] Phone: tel: fax: Referral ID Status Reason Start Date Expiration Date Visits Requested Visits Authorized [id number] Pending Review Specialty Services Required 09/17/2024 03/16/2025 1 1 Reason Comments Pre-op Visit Reason Comments Colposcopy Reason Onset Date Comments STAT referral 12/15/2024 FOR RECORDS PERTAINING TO PATIENTS WHO ARE OR HAVE BEEN ENROLLED IN A CHEMICAL DEPENDENCY/SUBSTANCEABUSE PROGRAM, SOME INFORMATION MAY BE OMITTED. This clinical summary was aggregated from multiple sources. Caution should be exercised in using it in the provision of clinical care. This summary normalizes information from multiple sources, and as a consequence, information in this document may materially change the coding, format and clinical context of patient data. In addition, data may be omitted in some cases. CLINICAL DECISIONS SHOULD BE BASED ON THE PRIMARY CLINICAL RECORDS. [facility] [employer] [facility]. provides no warranty or guarantee of the accuracy or completeness of information in this document.
--- NOTE | 2024-12-18 06:58 | MR_ITS ---
The [address] [address] Patient Name: DENISE WITT MRN: [facility]:[id number] date: 1980 Sex: F Assigned Patient Location: MRI Current Patient Location: MRI Accession/Order Number: [id number] Exam Date: 12/18/2024 08:44 Report Date: 12/18/2024 08:49 At the request of: AARON BERRY DO Procedure: MR head/brain wo/w con MRI the Brain with and without contrast TECHNIQUE: Multiplanar T1 and T2-weighted imaging of the brain. 14 cc of contrast given HISTORY: Surgical clearance. Laparoscopic hysterectomy. History of degenerative malformation. COMPARISON: none VENTRICLES: Unremarkable BRAIN VOLUME: Adequate volume of brain parenchyma identified. BRAIN PARENCHYMAL SIGNAL INTENSITY: Normal signal intensity of the brain parenchyma identified. BLEED: None MASS EFFECT: No mass effect DIFFUSION RESTRICTION: None GRADIENT ECHO PARENCHYMAL SIGNAL LOSS: None MIDBRAIN: The midbrain structures are unremarkable. ALTAF: Unremarkable MEDULLA: Unremarkable INTERNAL AUDITORY CANALS: Unremarkable SINUSES: Unremarkable ORBITS: Grossly unremarkable MASTOIDS: Unremarkable ENHANCEMENT: No pathologic enhancement. No enhancing mass. Chiari I malformation. No complication. MR/MR head/brain wo/w con IMPRESSION: No acute intracranial process. No pathologic enhancement. Chiari 1 malformation. Impression dictated by: Gildardo Conway M.D.12/18/2024 8:49 AM Dictation Location: [place] [address] Electronically authenticated by: [id number] Y Date: 12/18/2024 08:49
== END 2024-12-18 06:51 | disposition home or self-care (01) ==
LOC: MRI 06:51
PROVIDERS: PCP Family Medicine; Visit Provider Obstetrics & Gynecology
DX: G93.5 Compression of brain (principal); Z86.69 Personal history of other diseases of the nervous system and sense organs
CPT/HCPCS: 70553; A9575

== ENCOUNTER 2024-12-24 10:59 | Day surgery (SDC) | payer BC, SELFPAY ==
[2024-12-10 15:07] VITALS: BP 157/76; PULSE 83; TEMP 36.3; O2SAT 98; BMI 24.1
[2024-12-24] VITALS (13 sets, daily range): BP systolic 96–147; BP diastolic 52–78; PULSE 63–92; TEMP 36.3–37; O2SAT 60–96; BMI 23.7
--- OUTSIDE RECORDS SUMMARY | 2024-12-24 11:03 | XMS_ITS | CCD ---
Author Organization [facility] Care Team Providers Care Model And Dye Person Name Role Phone LATRICE ., DR WALKER [...] Redd Attending Unavailable LATRICE, AARON Attending Unavailable VijayJaron padron DO Primary Care Provider Unavai lable HOUSE, DO PATO Wayne Attending Unavailable HOUSE, PATO Wayne Primary Care Unavailable HOUSE, PATO Wayne Primary Care Unavailable HOUSE, DO COON P Attending Unavailable HOUSE, PATO Wayne Primary Care Unavailable HOUSE, DO COON P Attending Unavailable HOUSE, PATO Wayne Primary Care Unavailable HOUSE, DO PATO Wayne Admitting Unavailable HOUSE, DO PATO Wayne Attending Unavailable MARY KAY, EHAD Attending Unavailable JARON ROSE Referring Unavailable JARON ROSE Primary Care Unavailable Allergies Allergy Classification Reported Allergen(s) Allergy Type Date of Onset Reaction(s) Facility (2 sources) Penicillins Drug allergy (disorder) [address] [facility] Repository (15 sources) Penicillins Drug Intolerance 4 Unknown [facility] Work Phone: (1 source) Penicillin; Translations: [penicillin] Drug Allergy [facility] Repository Medications Current Medications Medication Drug Class(es) Dates Sig (Normalized) Sig (Original) DULoxetine 60 mg delayed release oral capsule (6 sources) Serotonin and Norepinephrine Reuptake Inhibitor Start: 09-29-2024 take 1 capsule by mouth in the morning DULoxetine (CYMBALTA) 60 mg capsule Take 1 capsule (60 mg total) by mouth in the morning. 09/29/2024 Active lamoTRIgine 150 mg oral tablet (16 sources) Mood Stabilizer, Anti-epileptic Agent lamoTRIgine (LaMICtal) 150 mg tablet 1 (one) time each day at [...] Active metoprolol tartrate 25 mg oral tablet (16 sources) beta-Adrenergic Alexander metoprolol tartrate (LOPRESSOR) 25 mg tablet every 12 (twelve) hours. Active Multiple Vitamin (Multi Vitamin) tablet (15 sources) Multiple Vitamin (Multi Vitamin) tablet 1 (one) time each day at the same time. Active cflnjzdgxzoo-Dg-zkd n-minerals tablet (1 source) multivitamin-Ca- ir on-minerals tablet 1 (one) time each day at the same time. Active omeprazole 20 mg delayed release oral capsule (16 sources) Proton Pump Inhibitor omeprazole (PriLOSEC) 20 mg capsule 1 (one) time each day at the same time. Active Completed/Discontinued Medications Medication Drug Class(es) Dates Sig (Normalized) Sig (Original) escitalopram 5 mg oral tablet (4 sources) Serotonin Reuptake Inhibitor End: 08-03-2024 escitalopram (Lexapro) 5 MG tablet 1 (one) time each day at the same time. 08/03/2024 Discontinued (Therapy completed) Problems Active Problems Problem Classification Problem Date Documented Date Episodic/Chronic Abdominal pain (1 source) Pain in female pelvis; Translations: [Pelvic and perineal pain] 11-25-2024 Episodic Esophageal disorders (2 sources) Gastroesophageal reflux disease; Translations: [Gastro-esophageal reflux disease without esophagitis] Onset: 12-22-2024 12-22-2024 Chronic Menstrual disorders (4 sources) Menorrhagia; Translations: [Excessive and frequent menstruation with regular cycle] Onset: 12-22-2024 11-25-2024 Chronic Nervous system congenital anomalies (3 sources) Chiari malformation; 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] Onset: 12-22-2024 12-22-2024 Chronic Other female genital disorders (5 sources) Abnormal uterine bleeding; Translations: [Other specified abnormal uterine and vaginal bleeding] 08-24-2024 Chronic Other female genital disorders (3 sources) Pain in female genitalia on intercourse; Translations: [Unspecified dyspareunia] Onset: 12-22-2024 11-25-2024 Chronic Other infections; including parasitic (2 sources) History of human papilloma virus infection; Translations: [Personal history of other infectious and parasitic diseases] 10-06-2024 Episodic Other nervous system disorders (2 sources) H/O: migraine; Translations: [Personal history of other diseases of the nervous system and sense organs] Onset: 12-22-2024 12-22-2024 Episodic Other screening for suspected conditions (not mental disorders or infectious disease) (4 sources) Cancer cervix screening status; Translations: [Encounter for screening for malignant neoplasm of cervix] 08-03-2024 Episodic Substance-related disorders (2 sources) Smoker; Translations: [Nicotine dependence, unspecified, uncomplicated] Onset: 12-22-2024 12-22-2024 Chronic Unclassified (1 source) New Patient Onset: 12-22-2024 Viral infection (1 source) Herpesviral gingivostomatitis and pharyngotonsillitis; Translations: [Herpesviral gingivostomatitis and pharyngotonsillitis] Onset: 11-17-2024 Episodic Past or Other Problems Problem Classification Problem Date Documented Da te Episodic/Chronic Mood disorders (1 source) Mood disorders Onset: 12-22-2024 12-22-2024 Unclassified (1 source) Onset: 12-22-2024 12-22-2024 Results Test Name Value Interpretation Reference Range Facility Rad - MRI Reporton Rad - MRI Report [id number]#1.00[facility] HEAD/BRAIN WO/W CONTRon 12-18-2024 [place] [address] Magnetic Resonance Report Signed Patient: ROSALIND JACKSON MR#: [id number] : 1980 Acct:[id number] Age/Sex: 44 / F ADM Date: 12/18/24 Loc: MRI Attending Dr: Aaron Pollard D.O. Ordering Physician: Aaron Pollard D.O. Date of Service: 12/18/24 Procedure(s): MR head/brain wo/w con Accession Number(s): [id number] cc: Aaron Pollard D.O.; [place] [address] Patient Name: ROSALIND JACKSON MRN: [facility]:[id number] date: 1980 Sex: F Assigned Patient Location: MRI Current Patient Location: MRI Accession/Order Number: [id number] Exam Date: 12/18/2024 08:44 Report Date: 12/18/2024 08:49 At the request of: AARON POLLARD DO Procedure: MR head/brain wo/w con MRI the Brain with and without contrast TECHNIQUE: Multiplanar T1 and T2-weighted imaging of the brain. 14 cc of contrast given HISTORY: Surgical clearance. Laparoscopic hysterectomy. History of degenerative malformation. COMPARISON: none VENTRICLES: Unremarkable BRAIN VOLUME: Adequate volume of brain parenchyma identified. BRAIN PARENCHYMAL SIGNAL INTENSITY: Normal signal intensity of the brain parenchyma identified. BLEED: None MASS EFFECT: No mass effect DIFFUSION RESTRICTION: None GRADIENT ECHO PARENCHYMAL SIGNAL LOSS: None MIDBRAIN: The midbrain structures are unremarkable. ALTAF: Unremarkable MEDULLA: Unremarkable INTERNAL AUDITORY CANALS: Unremarkable SINUSES: Unremarkable ORBITS: Grossly unremarkable MASTOIDS: Unremarkable ENHANCEMENT: No pathologic enhancement. No enhancing mass. Chiari I malformation. No complication. MR/MR head/brain wo/w con IMPRESSION: No acute intracranial process. No pathologic enhancement. Chiari 1 malformation. Impression dictated by: Gildardo Conway M.D.12/18/2024 8:49 AM Dictation Location: [place] [address] Electronically authenticated by: [id number] Y Date: 12/18/2024 08:49 Dictated By: Gildardo Conway D.O. Signed By: 12/18/24 0852 DD/ TD/TT: Plant Attendant Or Assistant Operator: [facility] Radiology, Radiologist, - 12/18/2024 [place] [address] Magnetic Resonance Report Signed Patient: ROSALIND JACKSON MR#: [id number] : 1980 Acct:[id number] Age/Sex: 44 / F ADM Date: 12/18/24 Loc: MRI Attending Dr: Aaron Pollard D.O. Ordering Physician: Aaron Pollard D.O. Date of Service: 12/18/24 Procedure(s): MR head/brain wo/w con Accession Number(s): [id number] cc: Aaron Pollard D.O.; [place] [address] Patient Name: ROSALIND JACKSON MRN: [facility]:[id number] date: 1980 Sex: F Assigned Patient Location: MRI Current Patient Location: MRI Accession/Order Number: [id number] Exam Date: 12/18/2024 08:44 Report Date: 12/18/2024 08:49 At the request of: AARON POLLARD DO Procedure: MR head/brain wo/w con MRI the Brain with and without contrast TECHNIQUE: Multiplanar T1 and T2-weighted imaging of the brain. 14 cc of contrast given HISTORY: Surgical clearance. Laparoscopic hysterectomy. History of degenerative malformation. COMPARISON: none VENTRICLES: Unremarkable BRAIN VOLUME: Adequate volume of brain parenchyma identified. BRAIN PARENCHYMAL SIGNAL INTENSITY: Normal signal intensity of the brain parenchyma identified. BLEED: None MASS EFFECT: No mass effect DIFFUSION RESTRICTION: None GRADIENT ECHO PARENCHYMAL SIGNAL LOSS: None MIDBRAIN: The midbrain structures are unremarkable. ALTAF: Unremarkable MEDULLA: Unremarkable INTERNAL AUDITORY CANALS: Unremarkable SINUSES: Unremarkable ORBITS: Grossly unremarkable MASTOIDS: Unremarkable ENHANCEMENT: No pathologic enhancement. No enhancing mass. Chiari I malformation. No complication. MR/MR head/brain wo/w con IMPRESSION: No acute intracranial process. No pathologic enhancement. Chiari 1 malformation. Impression dictated by: Gildardo Conway M.D.12/18/2024 8:49 AM Dictation Location: [place] [address] Electronically authenticated by: [id number] Y Date: 12/18/2024 08:49 Dictated By: Gildardo Conway D.O. Signed By: 12/18/24 0852 DD/ 0849 TD/TT: Plant Attendant Or Assistant Operator: [facility] Radiology Study observation (narrative) [facility] MRI HEAD/BRAIN WO/W CONTROrd ered By: Radiologist Radiology on 12-18-2024 [facility] [employer] Work Phone: ECG 12-LEADon 12-11-2024 [place] [address] Electrocardiograph Report Signed Patient: ROSALIND JACKSON MR#: [id number] : 1980 Acct:[id number] Age/Sex: 44 / F ADM Date: 12/10/24 Loc: [facility] Attending Dr: Aaron Pollard D.O. Ordering Physician: Aaron Pollard D.O. Date of Service: 12/10/24 Procedure(s): ECG 12 lead Accession Number(s): [id number] cc: 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 Measurements Intervals Conroy Rate: 69 P: 57 MD: 139 QRS: 80 QRSD: 78 T: 72 QT: 385 QTc: 415 Interpretive Statements SINUS RHYTHM Otherwise normal ECG Compared to ECG 02/19/2023 10:47:26 No significant change Electronically Signed On 12-11-2024 15:12:58 EDT by STEVE COHN M.D. Dictated By: STEVE COHN Signed By: 12/11/24 1513 DD/ 150 TD/TT: Plant Attendant Or Assistant Operator: [facility] Radiology, Radiologist, - 12/11/2024 [place] [address] Electrocardiograph Report Signed Patient: ROSALIND JACKSON MR#: [id number] : 1980 Acct:[id number] Age/Sex: 44 / F ADM Date: 12/10/24 Loc: [facility] Attending Dr: Aaron Pollard D.O. Ordering Physician: Aaron Pollard D.O. 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 Measurements Intervals Conroy Rate: 69 P: 57 MD: 139 QRS: 80 QRSD: 78 T: 72 QT: 385 QTc: 415 Interpretive Statements SINUS RHYTHM Otherwise normal ECG Compared to ECG 02/19/2023 10:47:26 No significant change Electronically Signed On 12-11-2024 15:12:58 EDT by STEVE COHN M.D. Dictated By: STEVE COHN Signed By: 12/11/24 1513 DD/ 1505 TD/TT: Plant Attendant Or Assistant Operator: [facility] ECG 12-LEADOrdered By: Radio logist Radiology on 12-11-2024 [facility] [employer] Work Phone: ALL CBC WITH AUTO DIFFon BASOPHILS ABSOLUTE AUTO [address] [facility] Basophils/100 WBC (Bld) 0.4 % 0.2 - 2.0 % [facility] Eosinophils/100 WBC (Bld) 2 % 0.9 - 7.0 % [facility] Erythrocyte distribution width (RBC) [Ratio] 12.7 % 11.0 - 15.0 % [facility] Hematocrit (Bld) [Volume fraction] 40.7 % 36.0 - 48.0 % [facility] Hemoglobin (Bld) [Mass/Vol] 14.1 g/dL 12.0 - 16.0 g/dL [facility] IMMATURE GRANULOCYTES ABS AUTO 0.[address] [facility] Immature granulocytes/100 WBC (Bld) 0.2 % 0.0 - 0.5 % [facility] Interpretation and review of laboratory results Abnormal [facility] LYMPHOCYTES ABSOLUTE AUTO 1.[address] [facility] Lymphocytes/100 WBC (Bld) 36.6 % 20.5 - 60.0 % [facility] MCH (RBC) [Entitic mass] 33.5 pg 26.7 - 34.[address] [facility] MCHC (RBC) [Mass/Vol] 34.6 g/dL 29.9 - 35.2 g/dL [facility] MCV (RBC) [Entitic vol] 96.7 fL 81.0 - 99.[address] [facility] MONOCYTES ABSOLUTE AUTO 0.[address] [facility] Monocytes/100 WBC (Bld) 7.1 % 1.7 - 12.0 % [facility] NEUTROPHILS ABSOLUTE AUTO 2.[address] [facility] Neutrophils/100 WBC (Bld) 53.7 % 43.0 - 75.0 % [facility] Platelet mean volume (Bld) [Entitic vol] 9.1 fL Low 9.5 - 13.5 fL [facility] are [facility] EO # 0.1 [facility] PLT 229 [facility] RBC 4.21 [facility] WBC 5.1 [facility] ECG 12-LEADon 12-10-2024 Radiology Study observation (narrative) [facility] Laboratory - Specimen inform ationon 09-21-2024 Specimen source Nom (Unsp spec) [facility] Comment on above: Endocervix, curettag e: Cervix, 3, 6, 12 o'c lock, biopsy: No Panel Informationon 09-21 Pathology report final diagnosis Narrative [facility] Comment on above: Fragments of unremar kable endocervical epithelium. Limited sample of ex tremely scant fragments of unremarkable endocervical epithelium, see comment. Pathology report gross observation Narrative [facility] Comment on above: Received in 10% neut [...] processing. MARYLOU Tissue examon 09-21-2024 Clinical information [facility] Comment on above: [id number] Pathologist Cyto stain Nom (Cvx/Vag) [ID] [facility] Comment on above: Janette Cerrato M.D. Board certified in Anatomic Pathology and Clinical Pathology (electronic signature) [phone] Pathology report comments [Interpretation] Narrative [facility] Comment on above: Intact squamous muco sa is not present for evaluation. SMALL FORMALIN X2 CERVIX 3,6,12 O'CLOCK; ENDOCERVIX [facility] Organization Information Site ID: [id number] Name: [facility] Address: [address] [place] [address], [place] [address] Director: Janette Cerrato MD [facility] e HCG ( test) Ql (U)o n 09-18-2024 Interpretation and review of laboratory results Normal [facility] Preg Test, Ur Negative Negative [facility] e Laboratory - Cytologyon Driver Utility Worker Cyto stain Nom (Cvx/Vag) [ID] [facility] re Comment on above: JEH, CT(ASCP) CT scr eening location: [place], [address] [place] [address], [place] [address]. Cytology study comment Cyto stain Bennett (Cvx/Vag) [Interp] [facility] Comment on above: This Pap test has be en evaluated with computer assisted technology. General categories Cyto stain (Cvx/Vag) [Interp] Abnormal [facility] Comment on above: Cytology Results: Ep ithelial Cell Abnormality Microscopic observation Cyto stain Nom (Cvx) Abnormal [facility] Comment on above: Low Grade Squamous I ntraepithelial Lesion (LSIL) Pathologist Cyto stain Nom (Cvx/Vag) [ID] [facility] Comment on above: Vaibhav Chowdhury MD, PhD, M.B.A. Board Certified in Anatomic and Clinical Pathology Board Certified in Cytopathology (electronic signature) For questions regarding this report call Anatomic Pathology at [phone] Specimen source Cyto stain Nom (Cvx/Vag) [facility] are Comment on above: None given Statement of adequacy Cyto stain (Cvx/Vag) [Interp] [facility] Comment on above: Satisfactory for paulette luation. Endocervical/transformation zone component present. Laboratory - Microbiology an d Antimicrobial susceptibilityon 08-12-2024 HPV 16+18+31+33+35+39+45+ 51+52+56+58+59+66+68 DNA ABHIJIT+probe Ql (Cvx) Detected Abnormal NOT DETECTED [facility] Comment on above: Detected One or more High Risk HPV types (16,18,31,33, 35,39,45,51,52,56,58,59,66,68) was detected. Methodology: Real Time PCR No Panel Informationon 08-12 (ALWAYS MESSAGE) [facility] Comment on above: EXPLANATORY NOTE: The Pap [...] historic and current clinical information. Clinical information [facility] Comment on above: None given Date of previous biopsy [facility] Comment on above: NONE GIVEN Date of previous PAP smear [facility] Comment on above: NONE GIVEN Interpretation and review of laboratory results Abnormal [facility] Last menstrual period start date [facility] Comment on above: NONE GIVEN Performing Organization Information Site ID: [id number] Name: [facility] [facility] Address: [address] [place] [address] [place] Director: Michelet Heard M.D.,PhD Site ID: [id number] Name: [facility] Address: [address] [place] [address] Director: Vaibhav Chowdhury [facility] Outside Recordson 07-23-2024 Outside Records [id number] [facility] Rad - Ultrasound Report [id number]#1 [facility] 03-04-2024 Patient Handout [id number] #[facility] Provided Health Data on 02-28-2024 Patient Provided Health Data [id number]# 1.00[facility] SCREENING MAMMOGRAM W/LUIS, BILATERAL*on 02-26-2022 SCREENING MAMMOGRAM [...] VERY IMPORTANT TO YOUR HEALTH. THE CURRENT [employer] OF [employer] GUIDELINES RECOMMENDS ANNUAL MAMMOGRAPHY BEGINNING AT AGE 40. THIS FACILITY USES A REMINDER SYSTEM TO ENSURE ALL PATIENTS RECEIVE REMINDER NOTIFICATIONS AT THE APPROPRIATE TIME BASED ON THE RECOMMENDATIONS OF THIS EXAM. Report reported and signed by Dennis Smith on 03/05/2022 1613 Normal [facility] Specialist Vital Signs Date Time Vital Sign Value Performing Clinician Faci lity 12-22-2024 11:29-0400 Body height 172.7 cm Kathya Muñiz MD Work Phone: [facility] 12-22-2024 11:29-0400 Body mass index (BMI) [Ratio] 23.72 kg/m2 Kathya Muñiz MD Work Phone: [facility] 12-22-2024 11:29-0400 Body weight 70.76 kg Kathya Muñiz MD Work Phone: [facility] 11-25-2024 16:07-0400 Body height 171.5 cm Aaron Latrice DO Work Phone: [facility] 11-25-2024 16:07-0400 Body mass index (BMI) [Ratio] 24.54 kg/m2 Aaron Latrice DO Work Phone: [facility] 11-25-2024 16:07-0400 Body weight 72.12 kg Aaron Latrice DO Work Phone: [facility] 11-25-2024 16:07-0400 Diastolic blood pressure 82 mm[Hg] Aaron Latrice DO Work Phone: [facility] 11-25-2024 16:07-0400 Systolic blood pressure 136 mm[Hg] Aaron Latrice DO Work Phone: [facility] 10-14-2024 14:52-0500 Body mass index (BMI) [Ratio] 24.35 kg/m2 Aaron Latrice DO Work Phone: [facility] 10-14-2024 14:52-0500 Body weight 72.63 kg Aaron Latrice DO Work Phone: [facility] 10-14-2024 14:52-0500 Diastolic blood pressure 72 mm[Hg] Aaron Latrice DO Work Phone: [facility] 10-14-2024 14:52-0500 Systolic blood pressure 114 mm[Hg] Aaron Latrice DO Work Phone: [facility] 08-24-2024 15:42-0500 Body mass index (BMI) [Ratio] 23.57 kg/m2 Tramaine Floro CNM Work Phone: [facility] 08-24-2024 15:42-0500 Body weight 70.31 kg Tramaine Floro CNM Work Phone: [facility] 08-24-2024 15:42-0500 Diastolic blood pressure 70 mm[Hg] Tramaine Floro CNM Work Phone: [facility] 08-24-2024 15:42-0500 Systolic blood pressure 110 mm[Hg] Tramaine Floro CNM Work Phone: [facility] 08-03-2024 17:48-0500 Body mass index (BMI) [Ratio] 23.57 kg/m2 Tramaine Floro CNM Work Phone: [facility] 08-03-2024 17:48-0500 Body weight 70.31 kg Tramaine Floro CNM Work Phone: [facility] Encounters Encounter Date Encounter Type Care Provider Facility Start: 12-22-2024 End: 12-22-2024 ambulatory KATHYA MUÑIZ [facility] Start: 12-22-2024 End: 12-22-2024 Office outpatient new 30 minutes Kathya Muñiz MD Work Phone: [facility] Nicho Comment on above: Irish byrd ([facility] (Primary Dx); Menorrhagia with irregular cycle; Smoker; Dyspareunia in female; History of migraine Start: 12-18-2024 End: 12-18-2024 [facility] Result Encounter Aaron Latrice DO Work Phone: [facility] Unsolicited Start: 12-18-2024 End: 12-18-2024 [facility] Result Encounter Aaron Latrice DO Work Phone: [facility] Unsolicited Start: 12-16-2024 ambulatory DO PATO Royal lity:[facility] Start: 12-15-2024 End: 12-15-2024 Telephone encounter Lisa [place] [facility], [facility] Department of [facility] Comment on above: STAT referral Start: 12-10-2024 End: 12-11-2024 [facility] Result Encounter Aaron Latrice DO Work Phone: [facility] Unsolicited Start: 12-10-2024 End: 12-11-2024 [facility] Result Encounter Aaron Latrice DO Work Phone: [facility] Unsolicited Start: 11-25-2024 End: 11-25-2024 Office outpatient visit 15 minutes Aaron Latrice DO Work Phone: [facility] Comment on above: Pre-op examination; Menorrhagia with regular cycle; Pelvic pain in female; Dyspareunia, female; Dysmenorrhea Start: 11-25-2024 End: 11-25-2024 Preprocedural examination done Aaron Latrice DO Work Phone: [facility] Start: 11-25-2024 End: 11-25-2024 ambulatory AARON LATRICE Not Available Start: 11-17-2024 End: 11-17-2024 ambulatory PATO [place] HOUSE Facility:[facility] Start: 10-14-2024 End: 10-14-2024 Office outpatient visit 15 minutes Aaron Latrice DO Work Phone: [facility] Comment on above: DUB (dysfunctional u terine bleeding) Start: 10-14-2024 End: 10-14-2024 ambulatory AARON LATRICE Not Available Start: 10-14-2024 End: 10-14-2024 Bamboo flowsheet Aaron Latrice DO Work Phone: [facility] Start: 10-14-2024 End: 10-14-2024 Bamboo flowsheet Aaron Latrice DO Work Phone: [facility] Start: 10-06-2024 End: 10-06-2024 Patient encounter procedure Tramaine L Floro CNM Work Phone: [facility] Comment on above: Abnormal cervical Pa panicolaou smear, unspecified abnormal pap finding; History of HPV infection Start: 10-06-2024 End: 10-06-2024 ambulatory TRAMAINE L FLORO Not Available Start: 09-17-2024 End: 09-17-2024 Patient encounter procedure Tramaine L Floro CNM Work Phone: [facility] [...] Start: 03-02-2024 End: 03-02-2024 ambulatory PATO ROLLE Facility:[facility] Start: 02-27-2024 End: 02-27-2024 ambulatory PATO ROLLE Facility:[facility] Start: 01-29-[address] AARON POLLARD . Facili ty:H1 Start: 12-31-[address] AARON POLLARD . Facili ty:[facility] Procedures Date Procedure Procedure Detail Performing Clinician Start: 12-22-2024 Adult depression scr eening assessment Ehad Mary Kay Work Phone: Start: 12-18-2024 MRI HEAD/BRAIN WO/W CONTR Aaron Latrice DO Work Phone: Start: 12-10-2024 ALL CBC WITH AUTO DIFF Aaron Latrice DO Work Phone: Start: 12-10-2024 ECG 12-LEAD Aaron Fazi o DO Work Phone: Start: 09-18-2024 Urine test visual color cmprsn meths Tramaine L Floro CNM Work Phone: Start: 09-18-2024 Level i surg patholo gy gross examination only Tramaine Laureano CN Work Phone: Start: 08-04-2024 THINPREP IMAGING PAP AND HPV DNA REFLEX HPV 16,18 Tramaine Laureano [facility] Work Phone: Start: 02-27-2022 Microscopic observat ion [Identifier] in Cervix by Cyto stain Pato Rolle MD Work Phone: Start: 02-26-2022 Mammography Pato yee MD Work Phone: Plan of Treatment Date Care Activity Detail Author Start: 02-26-2027 Screening for malign ant neoplasm of cervix [facility] Start: 12-22-2025 Adult BMI Screening Adult BMI Screen ing [facility] Start: 12-22-2025 Depression Screening Depression Scre ening [facility] Start: 12-22-2025 Tobacco Screening Tobacco Screening [facility] Start: 05-10-2025 Influenza vaccination [facility] Start: 01-19-2025 End: 01-19-2025 Patient encounter procedure 01/19/2025 9:00 AM EDT Procedure Visit [facility] [address] [place] [phone] Tramaine Laureano [facility] [address] [place] [address] [facility] Start: 12-22-2024 End: 12-22-2024 Patient encounter procedure 12/22/2024 11:00 AM EDT Office Visit [facility] [address] [place] [address] Kathya Muñiz MD [address] [place] [address] [address] [place] [phone] [facility] Start: 10-14-2024 End: 10-14-2024 Patient encounter procedure [facility] Comment on above: DUB (dysfunctional u terine bleeding) Start: 10-06-2024 End: 10-06-2025 Tissue exam Tissue exam Pathology and Cytology Routine Abnormal cervical Papanicolaou smear, unspecified abnormal pap finding History of HPV infection Expected: 10/06/2024 (Approximate), Expires: 10/06/2025 [facility] Work Phone: Comment on above: Expected: 10/06/2024 (Approximate), Expires: 10/06/2025 Start: 08-24-2024 End: 08-24-2024 Patient encounter procedure 08/24/2024 3:30 PM EST Office Visit [facility] [address] [place] [phone] Tramaine Laureano, CNM [address] [place] [address] Arrived [facility] Comment on above: Arrived Start: 08-03-2024 End: 08-03-2024 Patient encounter procedure 08/03/2024 5:45 PM EST Office Visit [facility] [address] [place] [phone] Tramaine Laureano, CN [address] [place] [address] Arrived [facility] Comment on above: Arrived Start: 05-10-2024 COVID-19 Vaccine ( season) COVID-19 Vaccine ( season) [facility] Start: 05-10-2024 Influenza vaccination Influenza Vacc ine (#1) [facility] Start: 02-26-2023 Screening for malign ant neoplasm of breast Mammogram [facility] Start: 2001 Screening for malign ant neoplasm of cervix Pap Smear [facility] Start: 1999 DTaP,Tdap and Td Vaccines (1 - Tdap) DTaP,Tdap and Td Vaccines ( - Tdap) [facility] Start: 1998 Adult BMI Screening Adult BMI Screen ing [facility] Start: 1992 Depression Screening Depression Scre ening [facility] Start: 1992 Tobacco Screening Tobacco Screening [facility] Start: 1980 Tobacco Counseling Tobacco Counselin aaron [facility] Payers Date Payer Category Payer [facility] Care - HMO ANTHEM [id number] 2021 [employer] [place] [employer] [facility] BCBS [id number] 2021 Unknown [id number] 1980 Unknown [id number] 2.16.840.1.705484.3.579. 2.593 1980 Unknown [id number] 2.16.840.1.341573.3.579. 2.593 1980 Unknown [id number] 2.16.840.1.528916.3.579. 2.1259 1980 Unknown [id number] 2.16.840.1.042182.3.579. 2.1259 1980 Unknown [id number] 2.16.840.1.807966.3.579. 2.1259 1980 Unknown [id number] 2.16.840.1.528757.3.579. 2.1259 1980 Unknown [id number] 2.16.840.1.616924.3.579. 2.1259 1980 Unknown [id number] 2.16.840.1.187197.3.579. 2.1259 1980 Unknown [id number] 2.16.840.1.192201.3.579. 2.718 1980 Unknown [id number] 2.16.840.1.083241.3.579. 2.718 1980 Unknown [id number] 2.16.840.1.819587.3.579. 2.718 1980 Unknown [id number] 2.16.840.1.167614.3.579. 2.718 1980 Unknown [id number] 2.16.840.1.089796.3.579. 2.1286 1959 Self-pay [id number] Social History Date Type Detail Facility Start: 02-04-2023 End: 12-22-2024 Tobacco smoking status NEIS Smokes tobacco daily [facility] Start: 09-09-2004 History of tobacco use Cigarette Smo ker [facility] Start: 04-03-2023 End: 12-22-2024 Alcoholic beverage intake Current drinker of alcohol (finding) [facility] Start: 04-03-2023 End: 12-22-2024 Alcoholic beverage intake [facility] Start: 04-03-2023 End: 12-22-2024 Tobacco use panel [facility] Start: 02-04-2023 Tobacco Comment 6-10 cigs per day. [facility] Start: 02-04-2023 Alcohol Comment Caffeine intak e: 1-2 cups per day [facility] Start: 1980 Sex assigned at Not on file [facility] Start: 08-03-2024 End: 12-22-2024 Tobacco use and exposure Smokeless tobacco non-user [facility] Tobacco smoking stat NHIS Tobacco smoking consumption unknown [facility] Childcare Unknown [facility] Start: 04-14-2015 Sex Female (finding) [facility] Start: 12-22-2024 Alcohol Comment occ [facility] Clinical Notes 03-23-2024 to 12-22-2024 Kathya Muñiz MD - 12/22/2024 11:00 AM EDTTelephone Encounter - Lisa Meza Pascual - 12/15/2024 11:07 AM EDTTelephone Encounter - Lisa Randalltejas - 12/15/2024 11:07 AM EDT Note Date & Type Note Facility 12-22-2024 History of Present illness Narrative Images from the original note were not included. [address] [facility] [id number] Patient: Rosalind Jackson Date of : 1980 Encounter Date: 12/22/2024 Patient Care Team: Jaron Rose DO as PCP - General History of Present Illness: The patient is a 44 y.o. female, a new patient, right-handed, and is here for pre-surgical clearance for a Da Arielle assisted laparoscopic hysterectomy, which is planned for 12/24/[address] Aaron Pollard(OBGYN) at [facility]. The indication for the hysterectomy is menorrhagia with irregular cycles, dyspareunia and concern for endometriosis. The patient is currently accompanied to the clinic by her mother. History is provided by the patient. The patient reports being diagnosed with Arnold-Chiari malformation type 1, about 20 years ago, at the time and she was having severe migraine-type headaches. Recalls onset of severe and frequent migraine-type headaches at the age of 12, denies any family history of migraines. She describes a typical headache originating in the occipital region, right more than left, described as throbbing/stabbing pain, which can radiate anteriorly, associated with nausea, vomiting, photophobia, phonophobia, lightheadedness. In her early 20s, it appears the headaches got significantly worse prompting neurological workup for her. 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 Denies being diagnosed with an encephalocele, meningomyelocele, syringomyelia at the time. She does not recall accurately, however believes she was told that than cerebellar tonsillar descent was 3-5 mm. She denies having a previous history of increased ICP, symptoms suggestive of brain stem dysfunction, focal neurological deficits, stroke, TIA, seizures, TBI, learning disability. She has not required any surgical intervention for the Arnold-Chiari malformation so far. She does not recall if she was following up with a neurologist or neurosurgeon in the past. Subsequently her migraines seemed to subside with the passage of time. She reports that she has not had a migraine-type headache for perhaps more than 15 years. She currently seeing an OBGYN for evaluation and management of menorrhagia/dysmenorrhoea/dyspare unia associated with irregular cycles. She is scheduled to have a de Arielle assisted laparoscopic hysterectomy by Dr. Pollard, which per the patient, might require positioning the patient in a way(head and neck twisted/tilted) that might obstruct CSF flow in the posterior cranial fossa. Her OBGYN subsequently sent her to the neurology clinic for pre-surgical clearance. At this point the patient appears to be asymptomatic from the presumed Chiari malformation. The patient is currently not on any blood thinners, antiplatelets or antithrombotics. Denies previous history of CVA, optic neuropathy, symptoms suggestive of brainstem dysfunction. Denies any history of spinal disorders or spinal OA. She did have an MRI brain with and without contrast 12/18/2024: IMPRESSION: No acute intracranial process. No pathologic enhancement. Stable Chiari malformation type 1. The patient is currently independent with ADLs and IADLs. Ambulates without any assistive devices. Allergies: Patient has no known allergies. Review of Relevant Patient Questionnaires: HIT 6: No data to display PHQ-9: 12/22/2024 11:32 AM PM AMB PHQ 9 Little interest or pleasure in doing things 0 Feeling down, depressed, or hopeless 0 Trouble falling or staying asleep, or sleeping too much 0 Feeling tired or having little energy 0 Poor appetite or overeating 0 Feeling bad about yourself - or that you are a failure or have let yourself or your family down 0 Trouble concentrating on things, such as reading the newspaper or watching television 0 Moving or speaking so slowly that other people could have noticed. Or the opposite - being so fidgety or restless that you have been moving around a lot more than usual 0 Thoughts that you would be better off , or of hurting yourself in some way 0 Total Score 0 If you checked off any problems, how difficult have these problems made it for you to do your work, take care of things at home, or get along with other people? Not difficult at all PHQ-15: No data to display SAVANNA-7: No data to display PTSD: No data to display [place]: No data to display DEVYN-10: No data to display Past Medical, Family, Surgical, and Social History Update: The following portions of the patient's history were reviewed and updated as appropriate: allergies, current medications, past family history, past medical history, past social history, past surgical history and problem list. History reviewed. No pertinent past medical history. History reviewed. No pertinent family history. History reviewed. No pertinent surgical history. Current Outpatient Medications Medication Sig Dispense Refill DULoxetine (CYMBALTA) 60 mg capsule Take 1 capsule (60 mg total) by mouth in the morning. lamoTRIgine (LaMICtal) 150 mg tablet 1 (one) time each day at the same time. metoprolol tartrate (LOPRESSOR) 25 mg tablet every 12 (twelve) hours. jqavbxytilmo-No-inxr-minerals tablet 1 (one) time each day at the same time. omeprazole (PriLOSEC) 20 mg capsule 1 (one) time each day at the same time. No current facility-administered medications for this visit. (All medications reviewed and updated by provider since last office visit or hospitalization) Tobacco History: Social History Tobacco Use Smoking Status Every Day Types: Cigarettes Smokeless Tobacco Never (If patient a smoker, smoking cessation counseling offered) Social History: Social History Substance and Sexual Activity Alcohol Use Yes Comment: occ Review of Systems: 14 systems were reviewed and negative except those mentioned in HPI . Physical Exam: Vitals: Vitals: 12/22/24 1129 Weight: 70.8 kg (156 lb) Height: 172.7 cm (5' 8 ) Patient consulted for exercise: encouragement to exercise. Neurological Physical Exam: Neurologic: Mental status: Alert; oriented to time, place, person and situation. No aphasia. No dysarthria. Normal recent and remote memory. Normal attention span and concentration. Able to provide good history. No gaze deviation, neglect, apraxia appreciated. The patient is able to follow 3 step complex commands. Cranial nerves: II: pupils equal and reactive to light; visual roque full; undilated funduscopy shows normal optic discs and retinal vessels bilaterally. III, IV, : extraocular movements intact; no ptosis. No nystagmus. V: facial sensation equal to touch in all 3 divisions bilaterally. No weakness of muscles of mastication. VII: face symmetric with normal eye closure and smile. VIII: hearing normal to rubbing fingers IX, X: palate elevates symmetrically; phonation normal. XI: Shoulder elevation symmetric and 5/5. Sternocleidomastoid muscle strength symmetric. XII: tongue midline with good movements. Motor: Normal bulk. No fasciculations. Normal muscle tone. Motor strength 5/5 in bilateral upper and bilateral lower extremities. No bradykinesia. No tremors. No other abnormal movements. Reflexes: DTRs 2/4 and symmetric bilaterally. No ankle clonus was noted. Sensory examination: Sensation to light touch, cold touch and vibration are bilaterally symmetric and normal. Coordination: Knfgbk-ovma-vfyrzj and zndw-qklg-lvqy tests are normal. No dysdiadochokinesia on rapid alternating movements. Gait and Station: Patient walks with narrow base and normal stride. Romberg's test negative. Retropulsion test was negative Data Reviewed: No results found for: CREATININE , BUN , NA , K , CL , CO2 No results found for: WBC , HGB , HCT , MCV , PLT No results found for: ALT , AST , GGT , ALKPHOS No results found for: INR , PROTIME No results found for: PTT Diagnostic Study Results: CT No results found. CTA No results found. MRI refer to HPI Angio No results found. Assessment and Plan: Rosalind was seen today for new patient. Diagnoses and all orders for this visit: Arnold-Chiari malformation (CMS-HCC) Menorrhagia with irregular cycle Smoker Dyspareunia in female History of migraine The patient is a 44 y.o. female, a new patient, and is here for pre-surgical clearance for a Da Arielle assisted laparoscopic hysterectomy, which is planned for 12/24/[address] Aaron Pollard(OBGYN) at [facility]. The indication for the hysterectomy is menorrhagia with irregular cycles, dyspareunia and concern for endometriosis. The patient is currently accompanied to the clinic by her mother. History is provided by the patient. The patient reports being diagnosed with Arnold-Chiari malformation type 1, about 20 years ago, at the time and she was having severe migraine-type headaches. Recalls onset of severe and frequent migraine-type headaches at the age of 12, denies any family history of migraines. She describes a typical headache originating in the occipital region, right more than left, described as throbbing/stabbing pain, which can radiate anteriorly, associated with nausea, vomiting, photophobia, phonophobia, lightheadedness. In her early 20s, it appears the headaches got significantly worse prompting neurological workup for her. 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 Denies being diagnosed with an encephalocele, meningomyelocele, syringomyelia at the time. She does not recall accurately, however believes she was told that than cerebellar tonsillar descent was 3-5 mm. She denies having a previous history of increased ICP, symptoms suggestive of brain stem dysfunction, focal neurological deficits, stroke, TIA, seizures, TBI, learning disability. She has not required any surgical intervention for the Arnold-Chiari malformation so far. She does not recall if she was following up with a neurologist or neurosurgeon in the past. Subsequently her migraines seemed to subside with the passage of time. She reports that she has not had a migraine-type headache for perhaps more than 15 years. She currently seeing an OBGYN for evaluation and management of menorrhagia/dysmenorrhoea/dyspare unia associated with irregular cycles. She is scheduled to have a de Arielle assisted laparoscopic hysterectomy by Dr. Pollard, which per the patient, might require positioning the patient in a way(head and neck twisted/tilted) that might obstruct CSF flow in the posterior cranial fossa. Her OBGYN subsequently sent her to the neurology clinic for pre-surgical clearance. At this point the patient appears to be asymptomatic from the presumed Chiari malformation. The patient is currently not on any blood thinners, antiplatelets or antithrombotics. Denies previous history of CVA, optic neuropathy, symptoms suggestive of brainstem dysfunction. Denies any history of spinal disorders or spinal OA. She did have an MRI brain with and without contrast 12/18/2024: IMPRESSION: No acute intracranial process. No pathologic enhancement. Stable Chiari malformation type 1. The patient is currently independent with ADLs and IADLs. Ambulates without any assistive devices. Neurological examination is unremarkable/nonfocal. No evidence or signs of brainstem dysfunction appreciated, no signs of increased ICP appreciated. Clinical impression: Presumed diagnosis of Chiari malformation type 1, appears to be clinically asymptomatic at this time. The patient is cleared for Da Arielle robot assisted laparoscopic hysterectomy. As I know, aforementioned procedure might require the patient to assume a position or posture which might obstruct the CSF flow in the posterior cranial fossa, given the cerebellar tonsillar ectopia. As a precaution, would avoid a steep Trendelenburg position(25-40 '?). If the position is unavoidable would use a lesser degree. would also avoid extreme hyperextension or hyperflexion of the neck. Avoid perioperative hypotension, metabolic and electrolyte disturbances. Continue supportive care. Regular follow-up with PCP and other specialists. Return to clinic as needed. Problem List Nervous and Auditory Arnold-Chiari malformation (CMS-HCC) - Primary Dyspareunia in female Genitourinary Menorrhagia with irregular cycle Other Smoker History of migraine Follow-up: As needed aKthya Muñiz MD Vascular Neurologist [facility] Neurology # [phone]([facility]) Total time spent was 45 minutes: Preparing to see the patient (e.g., review of tests) Obtaining and/or reviewing separately obtained history Performing a medically appropriate examination and/or evaluation Counseling and educating the patient/family/caregiver Documenting clinical information in the electronic or other health record Independently interpreting results (not separately reported) and communicating results to the patient/family/caregiver Care coordination (not separately reported) Important Notice: This note was created with the assistance of a speech recognition program. While intending to generate a timely document that accurately reflects the content of the encounter, no guarantee can be provided that every grammatical or spelling mistake has been or will be identified or corrected. Thank you for your understanding. documented in this encounter [facility] [employer] 12-15-2024 Miscellaneous Notes Please ask the following questions to the new patient that you are schedulin. IS THIS DUE TO AN ACCIDENT? - NO 2. IS THIS WORKER'S COMP? PLEASE VERIFY IF THIS IS WORKERS COMP AND DOCUMENT (We do not accept any new workers comp cases) - NO 3. WHAT INSURANCE? - Shaina BORGES[employer] 4. HAVE YOU EVER BEEN SEEN BY A NEUROLOGIST BEFORE? IF YES, WHO AND WHEN? IS THIS A SECOND OPINION? - YES NOT A SECOND OPINION 5. ANY CHANCE OF NOW OR BEFORE YOUR APPOINTMENT? - NO 6. OFFERED HARSH FOR SOONER APPOINTMENT? - 7. PATIENT IS SCHEDULED ON/WITH: - Dr. Muñiz on 12.23.23 at 11:00a 8. WHO CALLED TO SCHEDULE APPOINTMENT? - Sales Person called patient [facility] Telephone encounter Note Please ask the following questions to [...] 8. WHO CALLED TO SCHEDULE APPOINTMENT? - Sales Person called patient [facility] [employer] 12-09-2024 Note Entered by JERAD ROLLE DO on December 09, 2024 14:05:59 EDT From: PATO ROLLE DO [facility]: [id number] Sent: 12/09/2024 14:05:59 EDT Subject: Medication Management Approved Order:lansoprazole (lansoprazole 30 mg oral delayed release capsule) TAKE 1 CAPSULE BY MOUTH EVERY DAY Qty: 90 cap(s) Days Supply: 90 Refills: 1 Substitutions Allowed Route To [id number] Note from Pharmacy: REQUEST FOR 90 DAYS PRESCRIPTION. Signed by PATO ROLLE DO Cancelled: Discontinue:lansoprazole (lansoprazole 30 mg oral delayed release capsule) Signed by PATO ROLLE DO From: [id number] To: PATO ROLLE DO Sent: December 09, [...] from Pharmacy: REQUEST FOR 90 DAYS PRESCRIPTION. [facility] 11-25-2024 History of Present illness Narrative Reason for Appointment: Patient ID: Rosalind Jackson is a 44 y.o. female who presents for Pre-op Visit Patient presents today for Pre Op appointment. Patient is scheduled to undergo Da Arielle assisted Laparoscopic Hysterectomy, possible exploratory laparotomy, possible BSO, possible cystoscopy on 12/24/[address] Pollard at [facility]. MEDICATIONS Current Outpatient Medications Medication Instructions DULoxetine [...] nursing note reviewed. Exam conducted with a aerial planting and cultivation manager present. Vitals: Estimated body mass index is [...] reviewed, and patient is to proceed to [facility] OR. Follow Up: Patient is to follow up at 1 & 6 weeks post operative to assess proper healing and recovery from procedure. Documented by Tiarra Tellez LPN on behalf of: Aaron Pollard DO documented in this encounter [facility] 10-14-2024 History of Present illness Narrative Reason for Appointment: Patient ID: [...] nursing note reviewed. Exam conducted with a aerial planting and cultivation manager present. Vitals: Estimated body mass index is [...] Aaron Pollard DO documented in this encounter [facility] 10-06-2024 History of Present illness Narrative Colposcopy: Patient is doing well [...] depending on colposcopyresults. documented in this encounter [facility] 09-29-2024 Note Entered by JERAD ROLLE DO on September 29, 2024 10:11:46 EST From: PATO ROLLE DO To: [id number] Sent: 09/29/2024 10:11:46 EST Subject: Medication Management Submitted: Complete:DULoxetine (DULoxetine 60 mg oral delayed release capsule) Signed by PATO ROLLE DO 09/29/2024 10:11:00 EST Approved DULoxetine (DULOXETINE HCL DR 60 MG CAP) TAKE 1 CAPSULE BY MOUTH EVERY DAY Qty: 90 cap(s) Days Supply: 90 Refills: 1 Substitutions Allowed Route To Pharmacy - [facility]/pharmacy #[id number] --------- From: [id number] To: PATO ROLLE DO Sent: September 28, 2024 6:27:08 PM [employer] Subject: Medication Management Due: September 29, 2024 12:06:01 AM [employer] On Hold Pending Signature Dispensed Drug: DULoxetine (DULoxetine 60 mg oral delayed release capsule), TAKE 1 CAPSULE BY MOUTH EVERY DAY Quantity: 90 cap(s) Days Supply: 90 Refills: 1 Substitutions Allowed Notes from Pharmacy: --------- [facility] 09-17-2024 History of Present illness Narrative PROBLEM VISIT Rosalind Jackson is 44 y.o. a patient of [facility] [employer] [employer] [facility] Here for colposcopy Last pap: 08/04/24 Last mammogram: 02/26/22 will get current mammogram No LMP recorded. Patient has had an ablation. History: Past Medical History: Diagnosis Date Chiari syndrome (CMS/HCC) Menorrhagia with irregular cycle Past Surgical History: Procedure Laterality Date ENDOMETRIAL ABLATION 03/01/2023 Jonelle SALPINGECTOMY Bilateral 03/01/2023 laproscopic TONSILLECTOMY 1986 Family History Problem Relation Name Age of Onset Cancer Paternal Grand[facility] Allergies: Allergies Allergen Reactions Penicillins Unknown Medications: [...] MA,09/17/2024 2:33 PM documented in this encounter [facility] 08-31-2024 Note Entered by JERAD ROLLE DO on August 31, 2024 07:37:49 EST From: PATO ROLLE DO To: [facility][id number] Sent: 08/31/2024 07:37:49 EST Subject: Medication Management Submitted: Complete:lamoTRIgine (lamoTRIgine 150 mg oral tablet) Signed by PATO ROLLE DO 08/31/2024 07:37:00 EST Approved with modifications: lamoTRIgine (LAMOTRIGINE 150 MG TABLET) TAKE 1 TABLET BY MOUTH DAILY Qty: 30 tab(s) Days Supply: 30 Refills: 5 Substitutions Allowed Route To Pharmacy - [facility]/pharmacy #[id number] --------- From: [id number] To: PATO ROLLE DO Sent: August 30, 2024 11:06:20 AM MANAGER [employer] Subject: Medication Management Due: August 31, 2024 12:36:00 AM MANAGER [employer] On Hold Pending Signature Dispensed Drug: lamoTRIgine (lamoTRIgine 150 mg oral tablet), TAKE 1 TABLET BY MOUTH DAILY Quantity: 30 tab(s) Days Supply: 30 Refills: 2 Substitutions Allowed Notes from Pharmacy: --------- [facility] 08-24-2024 History of Present illness Narrative PROBLEM VISIT Rosalind Jackson is 44 y.o. a patient of [facility] Here for to discuss control to help with bleeding Last pap: 08/04/24 Last mammogram: No LMP recorded. Patient has had an ablation. History: Past Medical History: Diagnosis Date Chiari syndrome (CMS/HCC) Menorrhagia with irregular cycle Past Surgical History: Procedure Laterality Date ENDOMETRIAL ABLATION 03/01/2023 Jonelle SALPINGECTOMY Bilateral 03/01/2023 laproscopic TONSILLECTOMY 1986 Family History Problem Relation Name Age of [...] MA,08/24/2024 3:44 PM documented in this encounter [facility] 08-03-2024 History of Present illness Narrative PROBLEM VISIT Rosalind Jcakson is 44 y.o. a patient of [facility] Here for hospital follow up from pelvic pain Last pap: 2021 Last mammogram: No LMP recorded. Patient has had an ablation. History: Past Medical History: Diagnosis Date Chiari syndrome (CMS/HCC) Menorrhagia with irregular cycle Past Surgical History: Procedure Laterality Date ENDOMETRIAL ABLATION 03/01/2023 Jonelle SALPINGECTOMY Bilateral 03/01/2023 laproscopic TONSILLECTOMY 1986 Family History Problem Relation Name Age of [...] MA,08/03/2024 6:01 PM documented in this encounter [facility] 07-17-2024 Telephone encounter Note Patient called and wanted to schedule [...] decide what you want to do. Ty [facility] 07-17-2024 Miscellaneous Notes Patient called and wanted to schedule an [...] to do. Ty documented in this encounter [facility] 05-27-2024 Note Entered by JERAD ROLLE DO on May 27, 2024 07:37:52 EDT From: PATO ROLLE DO To: [facility]/pharmacy #[id number] Sent: 05/27/2024 07:37:52 EDT Subject: Medication Management Submitted: Complete:lamoTRIgine (lamoTRIgine 150 mg oral tablet) Signed by PATO ROLLE DO 05/27/2024 07:37:00 EDT Approved lamoTRIgine (LAMOTRIGINE 150 MG TABLET) TAKE 1 TABLET BY MOUTH DAILY Qty: 30 tab(s) Days Supply: 30 Refills: 2 Substitutions Allowed Route To Pharmacy - [facility]/pharmacy #[id number] --------- From: [id number] To: PATO ROLLE DO Sent: May 26, 2024 7:41:34 PM CDT Subject: Medication Management Due: May 27, 2024 11:01:35 AM CDT On Hold Pending Signature Dispensed Drug: lamoTRIgine (lamoTRIgine 150 mg oral tablet), TAKE 1 TABLET BY MOUTH DAILY Quantity: 30 tab(s) Days Supply: 30 Refills: 2 Substitutions Allowed Notes from Pharmacy: --------- [facility] 03-23-2024 Note Entered by JERAD ROLLE DO on March 23, 2024 07:34:07 EDT From: PATO ROLLE DO To: [facility]/pharmacy #[id number] Sent: 03/23/2024 07:34:07 EDT Subject: Medication Management Approved Order:DULoxetine (DULoxetine 60 mg oral delayed release capsule) TAKE 1 CAPSULE BY MOUTH EVERY DAY Qty: 90 cap(s) Days Supply: 90 Refills: 1 Substitutions Allowed Route To Pharmacy - [id number] Note from Pharmacy: REQUEST FOR 90 DAYS PRESCRIPTION. Signed by PATO ROLLE DO Cancelled: Discontinue:DULoxetine (DULoxetine 60 mg oral delayed release capsule) Signed by PATO ROLLE DO From: [id number] To: PATO ROLLE DO Sent: March 21, [...] from Pharmacy: REQUEST FOR 90 DAYS PRESCRIPTION. [facility] 03-23-2024 Note Entered by JERAD ROLLE DO on March 23, 2024 07:33:37 EDT From: PATO ROLLE DO To: [facility]/pharmacy #[id number] Sent: 03/23/2024 07:33:37 EDT Subject: Medication Management Approved Order:metoprolol (Metoprolol Tartrate 25 mg oral tablet) TAKE 1/2 TABLET BY MOUTH DAILY Qty: 45 tab(s) Days Supply: 90 Refills: 2 Substitutions Allowed Route To Pharmacy - [id number] Note from Pharmacy: REQUEST FOR 90 DAYS PRESCRIPTION. Signed by PATO ROLLE DO Cancelled: Discontinue:metoprolol (Metoprolol Tartrate 25 mg oral tablet) Signed by PATO ROLLE DO From: [id number] To: PATO ROLLE DO Sent: March 21, [...] from Pharmacy: REQUEST FOR 90 DAYS PRESCRIPTION. [facility] Evaluation note Diagnosis DUB (dysfunctional uterine bleeding)- Primary Other disorder of menstruation and other abnormal bleeding from female genital tract [facility] Diagnosis Screening for cervical cancer Screening for malignant neoplasm of the cervix documented in this encounter [facility]* Diagnosis Abnormal cervical Papanicolaou smear, [...] Dyspareunia, female Dysmenorrhea documented in this encounter [facility]* Diagnosis DUB (dysfunctional uterine bleeding)- Primary Other disorder of menstruation and other abnormal bleeding from female genital tract Abnormal cervical Papanicolaou smear, unspecified abnormal pap finding History of HPV infection documented in this encounter [facility] note* Diagnosis Arnold-Chiari malformation ([facility]-HCC)- Primary Spina bifida with hydrocephalus, unspecified region Menorrhagia with irregular cycle Smoker Tobacco use disorder Dyspareunia in female History of migraine [facility] this [facility] Summary Purpose Family History No Family History Records FoundNo Family History Records FoundNo Family History Records FoundNo Family History Records FoundNo Family History Records Found Advance Directives No Advanced Directives Records FoundNo Advanced Directives Records FoundNo Advanced Directives Records FoundNo Advanced Directives Records FoundNo Advanced Directives Records Found Additional Source Comments INFORMATION SOURCE (unrecogn ized section and content) DATE CREATED AUTHOR 03/06/2022 [facility] dical Specialist DATE CREATED AUTHOR AUTHOR'S ORGANIZ ATION 01/23/2023 [facility] DATE CREATED AUTHOR AUTHOR'S ORGANIZ ATION 11/27/2024 [facility] dical Specialists EPIC DATE CREATED AUTHOR AUTHOR'S ORGANIZ ATION 12/22/2024 [facility] DATE CREATED AUTHOR AUTHOR'S ORGANIZ ATION 12/24/2024 [facility] Care Teams (unrecognized sec tion and content) Model And Dye Person Relationship Specialty Start Date End Date Pato Rolle MD [address] [place] [facility] [place] [address] PCP - General Family Medicine 02/05/23 Model And Dye Person Relationship Specialty Start Date End Date Pato Rolle MD [address] [place] [facility] [address] PCP - General Family Medicine 02/05/23 Model And Dye Person Relationship Specialty Start Date End Date Pato Rolle MD [address] [place] [facility] [address] PCP - General Family Medicine 02/05/23 Model And Dye Person Relationship Specialty Start Date End Date Pato Rolle MD [address] [place] [facility] [place] [address] PCP - General Family Medicine 02/05/23 Model And Dye Person Relationship Specialty Start Date End Date Pato Rolle MD [address] [place] [facility] [address] PCP - General Family Medicine 02/05/23 Model And Dye Person Relationship Specialty Start Date End Date Pato Rolle MD [address] [place] [facility] [address] PCP - General Family Medicine 02/05/23 Model And Dye Person Relationship Specialty Start Date End Date Pato Rolle MD [address] [place] [facility] [address] PCP - General Family Medicine 02/05/23 Model And Dye Person Relationship Specialty Start Date End Date Pato Rolle MD [address] [place] [facility] [address] PCP - General Family Medicine 02/05/23 Model And Dye Person Relationship Specialty Start Date End Date Jaron Rose, DO PCP - General 01/31/17 Model And Dye Person Relationship Specialty Start Date End Date Jaron Rose, DO PCP - General 01/31/17 Reason for Visit (unrecogniz ed section and content) Reason Comments Pelvic Pain Reason Comments Colposcopy Reason Comments Vaginal Bleeding Specialty Diagnoses / Procedures Referred By Contac t Referred To Contact Obstetrics and Gynecology Diagnoses DUB (dysfunctional uterine bleeding) Procedures MD OFFICE/OUTPATIENT NEW HIGH MDM 60 MINUTES Tramaine Laureano, CNM [address] [place] [address] Phone: tel: fax: Aaron Pollard DO [address] [place] [address] Phone: tel: fax: Referral ID Status Reason Start Date Expiration Date Visits Requested Visits Authorized [id number] Pending Review Specialty Services Required 09/17/2024 03/16/2025 1 1 Reason Comments Pre-op Visit Reason Comments Colposcopy Reason Onset Date Comments STAT referral 12/15/2024 Reason Comments New Patient Patient is here toda y as a new patient for DX: Chiari Syndrom - needs clearance for Laparoscopic hysterectomy on 12.24.24. FOR RECORDS PERTAINING TO PATIENTS WHO ARE [...] BE BASED ON THE PRIMARY CLINICAL RECORDS. [employer] provides no warranty or guarantee of the accuracy or completeness of information in this document.
[2024-12-24 11:07] LABS: Basophils Percent Auto 0.4 % (0.2-2.0); Eosinophils Absolute Auto 0.1 10^3/uL (0.0-0.7); Eosinophils Percent Auto 1.5 % (0.9-7.0); Hematocrit 42.1 % (36.0-48.0); Hemoglobin 14.8 g/dL (12.0-16.0); Immature Granulocytes Abs Auto 0.01 10^3/uL (0.00-0.03); Immature Granulocytes Pct Auto 0.2 % (0.0-0.5); Lymphocytes Absolute Auto 2.1 10^3/uL (1.2-3.8); Lymphocytes Percent Auto 38.4 % (20.5-60.0); Mean Corpuscular HGB Conc 35.2 g/dL (29.9-35.2); Mean Corpuscular Hemoglobin 33.9 pg (26.7-34.0); Mean Corpuscular Volume 96.3 fL (81.0-99.0); Monocytes Absolute Auto 0.5 10^3/uL (0.3-0.8); Monocytes Percent Auto 9.1 % (1.7-12.0); Neutrophils Absolute Auto 2.7 10^3/uL (1.4-6.5); Neutrophils Percent Auto 50.4 % (43.0-75.0); Platelet Count 240 10^3/uL (150-450); Red Blood Count 4.37 10^6/uL (4.20-5.40); Red Cell Distribution Width 12.5 % (11.0-15.0); White Blood Count 5.4 10^3/uL (4.0-11.0)
[2024-12-24] MEDS: LACTATED RINGER'S SOLUTION 1,000 ML 50 ML IV ×2 (11:28→14:50)
[2024-12-24 11:35] LABS: HCG Quantitative <1 mIU/mL
[2024-12-24] MEDS: FAMOTIDINE/PF 20 MG/2 ML VIAL IV (11:36)
[2024-12-24] MEDS: CEFAZOLIN SODIUM 2 GM/50 ML D5W PREMIX IV (12:54)
[2024-12-24] MEDS: LACTATED RINGER'S SOLUTION 1,000 ML 75 ML IV (13:07)
--- NOTE | 2024-12-24 14:55 | PM.ONB ---
Brief Operative Note Date of procedure: 12/24/24 Pre-op diagnosis general: pelvic pain, failed ablation, dysmenorrhea, dysparenia Post-op diagnosis: same as pre-op Procedure: NAME OF PROCEDURE: ? Robotic assisted laparoscopic hysterectomy with cystoscopy PROCEDURE:? The patient was taken back to the operating room, where she was prepped and draped in the normal sterile fashion after being placed in the dorsal lithotomy position.? Patient?s anesthesia was found to be adequate.? Surgical timeout was performed using two patient identifiers.? SCDs were on and in place.? Two grams of Ancef were given prior to the surgery.? Sterile Coleman catheter was inserted.? Standard size VCare was secured to the uterine cervix and the surgeon changed gloves.? Attention then was turned to the patient's abdomen, where a supraumbilical incision was then made.? Two S retractors were used to identify the patient?s fascia.? The fascia was then tented up using Kassidy clamps and the patient?s fascia was incised sharply.? Patient?s abdomen was identified and entered bluntly.? The patient had the trocar placed and a pneumoperitoneum was obtained.? Approximately 4 liters of CO2 gas was used.? The camera was then placed through the trocar.? At this time, two robot trocars were placed in the patient?s left and right side, two hand widths from the midline, and this was placed under direct visualization.? Please note absent tubes were seen. The uterine ovarian ligament was identified and transected and ligated using the vessel sealer? The vessel sealer was carried down serially to the broad ligament, to the area of the bladder flap, which was then created anteriorly, and the uterine arteries were skeletonized and sealed using the vessel sealer.? The colpotomy was made using the monopolar cautery on cut, and this was carried circumferentially, posteriorly to anteriorly, until the uterus was amputated.? The specimen was then removed intact through the vagina, without difficulty.? The vagina was then closed using two running V-Loc in a non-lock fashion.? The robot was undocked.? The abdomen was desufflated.? The skin defects were closed using 4-0 Vicryl.? Please note, the fascia was closed using 0 Vicryl.? Sponge, lap and needle counts were correct x2.? Patient was taken to recovery room in stable condition.? The patient was awakened by Anesthesia first.? Patient tolerated procedure well.?? Anesthesia: JESSENIA Surgeon: Osiel Pollard Production Team Leader: Vanesa Mcknight Estimated blood loss (mL): 50 Pathology: other (uterus and cervix) Condition: stable Disposition: PACU Urinary Catheter Management Urinary Catheter Management Urethral: Cath placed during this visit: no
[2024-12-24] MEDS: LACTATED RINGER'S SOLUTION 1,000 ML 125 ML IV (16:16)
[2024-12-24] MEDS: CEFAZOLIN SODIUM/DEXTROSE,ISO 2 GM/50 ML PIGGYBACK IV (20:18)
[2024-12-24] MEDS: IBUPROFEN 400 MG TABLET 800 MG PO (20:57)
[2024-12-24 21:05] LABS: Hemoglobin 12.8 g/dL (12.0-16.0); Mean Corpuscular HGB Conc 33.7 g/dL (29.9-35.2); Mean Corpuscular Hemoglobin 33.2 pg (26.7-34.0); Mean Corpuscular Volume 98.4 fL (81.0-99.0); Mean Platelet Volume 9.3 fL (9.5-13.5); Platelet Count 203 10^3/uL (150-450); Red Blood Count 3.86 10^6/uL (4.20-5.40); Red Cell Distribution Width 12.8 % (11.0-15.0); White Blood Count 9.1 10^3/uL (4.0-11.0)
[2024-12-24 21:14] LABS: Lymphocytes Absolute Manual 0.45 10^3/uL (1.20-3.80); Monocytes Absolute Manual 0.27 10^3/uL (0.30-0.80); Segmented Neut Absolute Manual 8.37 10^3/uL (1.4-6.5)
== END 2024-12-24 21:36 | disposition home or self-care (01) ==
LOC: SURGOUT 15:51 → MS 15:52
PROVIDERS: PCP Family Medicine; Visit Provider Obstetrics & Gynecology
PROC: (CPT 840; principal; 2024-12-24 12:30)
DX: N92.0 Excessive and frequent menstruation with regular cycle (principal); R10.2 Pelvic and perineal pain; N94.6 Dysmenorrhea, unspecified; N94.10 Unspecified dyspareunia; N80.03 Adenomyosis of the uterus; F17.210 Nicotine dependence, cigarettes, uncomplicated; K21.9 Gastro-esophageal reflux disease without esophagitis
CPT/HCPCS: 58570; 36415; 84702; 85007; 85025; 85027; 88307; 88341; 88342; 94667; J0131; J0690; J1100; J1171; J1290; J1885; J1938; J2250; J2405; J2704; J3010; J3490